=== PATIENT | male | born 1955 | race Caucasian/White ===

== ENCOUNTER → 2016-09-16 | Outpatient (CLI) | payer OTHER, MEDICARE ==
[~2016-09-16] MED LIST: ALBUAER2 INH; OXYC-57 PO
[2016-09-16 16:49] LABS: HEMATOCRIT 44.1 % (42-52); MEAN CELL VOLUME 87.7 fL (80-100); MEAN CORPUSCULAR HGB CONC 33.1 g/dl (32-36); MEAN PLATELET VOLUME 11.4 fL (7.4-10.4); PLATELET COUNT 269 K/uL (130-400); RED BLOOD COUNT 5.03 M/uL (4.7-6.1); WHITE BLOOD COUNT 7.99 K/uL (4.8-10.8)
[2016-09-16 17:17] LABS: ALB/GLOB RATIO 0.8 (0.9-2); ALKALINE PHOSPHATASE 55 U/L (45-117); ALT/SGPT 59 U/L (12-78); AST/SGOT 37 U/L (15-37); BLOOD UREA NITROGEN 19 mg/dl (7-18); BUN/CREATININE RATIO 15.5 (10-20); CALCIUM 8.9 mg/dl (8.5-10.1); CARBON DIOXIDE 24 mmol/L (21-32); CHLORIDE 106 mmol/L (98-107); GLUCOSE 104 mg/dl (70-99); POTASSIUM 3.8 mmol/L (3.5-5.1); SODIUM 139 mmol/L (136-145)
== END | disposition home or self-care (01) ==
LOC: C.LABBFT 12:31
PROVIDERS: ATTEND Internal Medicine
DX: Z11.59 Encounter for screening for other viral diseases (principal); R19.7 Diarrhea, unspecified

== ENCOUNTER 2021-03-15 19:16 | Inpatient (IN) ==
[2021-03-15] MEDS ORDERED: SODIUM CHLORIDE 0.9% 1000ML 1,000 ML IV ONE (19:35)
[2021-03-15] MEDS ORDERED: MoRPHine SULFATE 2 MG/ML CARP IV STA ×2 (19:35→23:53)
--- NOTE | 2021-03-15 19:37 | Emergency Department Note ---
Impression & Plan Incarcerated right inguinal hernia, SBO (small bowel obstruction), Incidental pulmonary nodule ED Provider Note Provider: Jessee Lujan MD DATE OF SERVICE: 03/15/2021 CHIEF COMPLAINT: Right lower abdominal pain HISTORY OF PRESENT ILLNESS: Patient is a 65-year-old gentleman history of UTI in the past presenting here today reporting onset around 4 PM this evening of some discomfort in the right lower abdominal region. States it was mild initially but is been worsening. Took some ibuprofen after discussion with the on-call doctor at home with some improvement but given continued symptoms came here. Denies any fever, chills, shortness of breath, chest pain, upper abdominal pain, back pain, pain down the legs, nausea, vomiting, or diarrhea. Denies significant testicular pain. Patient states he has frequent urination but this is unchanged. Does relate history of prior UTI in August but this feels maybe a bit different. Denies any history of abdominal surgery in the past. Denies any trauma or recent heavy lifting. Patient denies a known history of hernia but states he has noted some swelling in the right inguinal region for a while. REVIEW OF SYSTEMS: A total of 10 review of systems was obtained and negative except as stated above in the HPI. PAST MEDICAL HISTORY: As noted above MEDICATIONS: Reviewed home medications list SOCIAL HISTORY: Former smoker, lives at home PHYSICAL EXAM: GENERAL: alert and oriented in no acute distress on stretcher Head: normocephalic and atraumatic EYES: No injection, discharge or icterus. NECK: Trachea midline. ENT: Mucous membranes pink and moist. LUNGS: Airway patent. No retractions. Breath sounds clear HEART: Regular rate and rhythm. No chest wall tenderness ABDOMEN: Soft with some tenderness in the right inguinal region with a large palpable mass in this area extending into the right testicular region. SKIN: Acyanotic, warm, dry, without rashes EXTREMITIES: Without swelling, tenderness or deformity NEUROLOGICAL: No focal deficits. No aphasia. No facial droop or slurred speech. Ambulatory. EK bpm sinus rhythm with a first-degree AV block. Left bundle branch is noted with a left axis. No acute ST segment elevation is noted with a QTC of 498. CONTINUOUS CARDIAC MONITORING: was ordered and showed a heart rate of 60s-80s bpm in sinus rhythm first-degree AV block Patient's laboratory studies and imaging reviewed. Differential includes Appendicitis, testicular torsion, infections, diverticulitis, UTI, obstruction, mesenteric ischemia, aortic pathology, inflammatory bowel disease, renal colic, PUD, pancreatitis, biliary pathology, hernia, volvulus, constipation, as well as other pathologies. IMPRESSION/MEDICAL DECISION MAKING: Patient presents with right inguinal type pain with what appears to be a large hernia. Not able to be reduced by myself at bedside. Did give him a small amount of morphine for discomfort. Is somewhat tender here but not exquisitely so. No chest or upper abdominal discomfort appreciated. Negative Gastelum sign. Denies significant testicular discomfort. Blood work here without significant leukocytosis or anemia. Lactate not elevated. Lipase within normal limits and no evidence of transaminitis. Patient denies a history of known hernia here. Lower suspicion for acute appendicitis or kidney stone given the physical exam findings. Patient does have a history of UTI and will send a urine as he is able to produce but again given the tenderness over the area sent for CT scan to look for possible incarcerated or strangulated hernia. CT report shows evidence of an incarcerated large right inguinal hernia with evidence of some small bowel obstruction developing. Patient without significant bowel obstruction symptoms such as nausea at this point likely. Patient reevaluation states his pain is fairly steady improved minimally with a small amount of morphine earlier but is not severely worse. Discussed with him and family at bedside findings. Discussed the need for surgical consultation and the surgery team was contacted to evaluate the patient emergently here in the emergency department. Urinalysis without signs of infection I believe the primary etiology of his entire symptoms related this hernia. Did discuss with patient the findings of a few small incidental pulmonary nodules at the base of the lungs that will need followed up when he is recovered. He acknowledged these. DIAGNOSIS: Incarcerated hernia, small bowel obstruction, pulmonary nodules DISPOSITION: Evaluated by the surgery team Brian GRIJALVA Past Med/Surg History Medical History Flank pain Urinary symptom or sign Social History Smoking Status: Former smoker Preferred Language: Divehi Feels Safe at Home: Yes Allergies Allergies Allergy/AdvReac Type Severity Reaction Status Date / Time No Known Allergies Allergy Mild Verified 03/15/21 21:29 Home Meds Home Medications Medication Instructions Recorded Confirmed ibuprofen [Advil] 200 mg PO Q6H PRN 03/15/21 03/15/21 Previous Rx's Medication Instructions Recorded sertraline 50 mg tablet 50 mg PO DAILY #90 tab 12/18/19 triamcinolone acetonide 0.1 % 1 applic TOPICAL BID #30 g 09/11/20 topical cream omeprazole 20 mg capsule,delayed 20 mg PO DAILY #90 cap 12/24/20 release Results & Data (ED) Vital Signs Vital Signs - 24 hr 03/15/21 19:18 03/15/21 20:08 03/15/21 20:30 Temperature 36.6 C Temperature Source Temporal Artery Scan Pulse Rate 80 69 65 Pulse Rate from SpO2 Sensor 66 Pulse Rhythm Regular Respiratory Rate 18 20 20 Respiratory Effort / Characteristics Non-Labored Spontaneous Respiratory Depth Normal Respiratory Pattern Regular Blood Pressure 220/121 H 172/105 H Blood Pressure Mean 154 127 Blood Pressure Position Sitting Pulse Oximetry 99 99 98 Oxygen Delivery Method Room Air Room Air Sepsis Recent Fever Within 48 Hours No Sepsis New/Unexplained Change in Mental Status N/A Sepsis Action Taken by Nursing No Action Required 03/15/21 20:34 03/15/21 21:28 03/15/21 21:30 Temperature Temperature Source Pulse Rate 67 68 74 Pulse Rate from SpO2 Sensor 66 75 Pulse Rhythm Respiratory Rate 18 18 19 Respiratory Effort / Characteristics Respiratory Depth Respiratory Pattern Blood Pressure 180/91 H Blood Pressure Mean 120 Blood Pressure Position Pulse Oximetry 97 99 Oxygen Delivery Method Sepsis Recent Fever Within 48 Hours Sepsis New/Unexplained Change in Mental Status Sepsis Action Taken by Nursing 03/15/21 21:31 03/15/21 22:00 03/15/21 22:01 Temperature Temperature Source Pulse Rate 72 72 74 Pulse Rate from SpO2 Sensor 73 73 72 Pulse Rhythm Respiratory Rate 17 21 20 Respiratory Effort / Characteristics Respiratory Depth Respiratory Pattern Blood Pressure 161/107 H Blood Pressure Mean 125 Blood Pressure Position Pulse Oximetry 98 98 97 Oxygen Delivery Method Sepsis Recent Fever Within 48 Hours Sepsis New/Unexplained Change in Mental Status Sepsis Action Taken by Nursing Laboratory Data Result diagrams: 03/15/21 19:54 03/15/21 19:54 Lab Results 03/15/21 03/15/21 03/15/21 Range/Units 19:54 19:54 19:54 WBC 9.94 (4.8-10.8) K/uL RBC 4.83 (4.7-6.1) M/uL Hgb 14.5 (14.0-18.0) g/dL Hct 42.7 (42-52) % MCV 88.4 (80-100) fL MCH 30.0 (25-34) pg MCHC 34.0 (32-36) g/dL RDW Std Deviation 44.2 (36.4-46.3) fL RDW Coeff of Rob 13.5 (11.5-14.5) % Plt Count 253 (130-400) K/uL MPV 11.2 H (7.4-10.4) fL Immature Gran % (Auto) 0.2 % Neut % (Auto) 71.6 % Lymph % (Auto) 19.2 % [place] % (Auto) 8.2 % Eos % (Auto) 0.7 % Baso % (Auto) 0.1 % Neut # (Auto) 7.11 H (1.4-6.5) K/uL Lymph # (Auto) 1.91 (1.2-3.4) K/uL [place] # (Auto) 0.82 H (0.11-0.59) K/uL Eos # (Auto) 0.07 (0-0.5) K/uL Baso # (Auto) 0.01 (0-0.2) K/uL Immature Gran # (Auto) 0.02 (0.00-0.02) K/uL PT (9.0-12.0) Seconds INR (0.9-1.1) Sodium 138 (136-145) mmol/L Potassium 4.1 (3.5-5.1) mmol/L Chloride 107 (98-107) mmol/L Carbon Dioxide 26 (21-32) mmol/L Anion Gap 5.0 (3-11) BUN 15 (7-18) mg/dl Creatinine 1.02 (0.6-1.4) mg/dl Est Cr Clr Drug Dosing 85.2 ml/min Est GFR ( Amer) 88.4 ml/min Est GFR (Non-Af Amer) 76.2 ml/min BUN/Creatinine Ratio 14.7 (10-20) Glucose 107 H (70-99) mg/dl Lactate 1.1 (0.4-2.0) mmol/L Calcium 9.1 (8.5-10.1) mg/dl Total Bilirubin 0.3 (0.2-1) mg/dl AST 18 (15-37) U/L ALT 25 (12-78) U/L Alkaline Phosphatase 57 (45-117) U/L Total Protein 7.8 (6.4-8.2) gm/dl Albumin 3.5 (3.4-5.0) gm/dl Globulin 4.3 H (2.5-4.0) gm/dl Albumin/Globulin Ratio 0.8 L (0.9-2) Lipase 178 (73-393) U/L Urine Color Urine Appearance (Clear) Urine pH (4.5-7.5) Ur Specific [place] (1.000-1.030) Urine Protein (Negative) Urine Glucose (UA) (Negative) Urine Ketones (Negative) Urine Blood (Negative) Urine Nitrite (Negative) Urine Bilirubin (Negative) Urine Urobilinogen (Negative) Ur Leukocyte Esterase (Negative) COVID-19 Eval Order SARS-CoV-2 (PCR) (Negative) 03/15/21 03/15/21 03/15/21 Range/Units 19:54 20:10 20:10 WBC (4.8-10.8) K/uL RBC (4.7-6.1) M/uL Hgb (14.0-18.0) g/dL Hct (42-52) % MCV (80-100) fL MCH (25-34) pg MCHC (32-36) g/dL RDW Std Deviation (36.4-46.3) fL RDW Coeff of Rob (11.5-14.5) % Plt Count (130-400) K/uL MPV (7.4-10.4) fL Immature Gran % (Auto) % Neut % (Auto) % Lymph % (Auto) % [place] % (Auto) % Eos % (Auto) % Baso % (Auto) % Neut # (Auto) (1.4-6.5) K/uL Lymph # (Auto) (1.2-3.4) K/uL [place] # (Auto) (0.11-0.59) K/uL Eos # (Auto) (0-0.5) K/uL Baso # (Auto) (0-0.2) K/uL Immature Gran # (Auto) (0.00-0.02) K/uL PT 10.9 (9.0-12.0) Seconds INR 1.1 (0.9-1.1) Sodium (136-145) mmol/L Potassium (3.5-5.1) mmol/L Chloride (98-107) mmol/L Carbon Dioxide (21-32) mmol/L Anion Gap (3-11) BUN (7-18) mg/dl Creatinine (0.6-1.4) mg/dl Est Cr Clr Drug Dosing ml/min Est GFR ( Amer) ml/min Est GFR (Non-Af Amer) ml/min BUN/Creatinine Ratio (10-20) Glucose (70-99) mg/dl Lactate (0.4-2.0) mmol/L Calcium (8.5-10.1) mg/dl Total Bilirubin (0.2-1) mg/dl AST (15-37) U/L ALT (12-78) U/L Alkaline Phosphatase (45-117) U/L Total Protein (6.4-8.2) gm/dl Albumin (3.4-5.0) gm/dl Globulin (2.5-4.0) gm/dl Albumin/Globulin Ratio (0.9-2) Lipase (73-393) U/L Urine Color Urine Appearance (Clear) Urine pH (4.5-7.5) Ur Specific [place] (1.000-1.030) Urine Protein (Negative) Urine Glucose (UA) (Negative) Urine Ketones (Negative) Urine Blood (Negative) Urine Nitrite (Negative) Urine Bilirubin (Negative) Urine Urobilinogen (Negative) Ur Leukocyte Esterase (Negative) COVID-19 Eval Order Covid19 at [facility] SARS-CoV-2 (PCR) NEGATIVE (Negative) 03/15/21 Range/Units 21:30 WBC (4.8-10.8) K/uL RBC (4.7-6.1) M/uL Hgb (14.0-18.0) g/dL Hct (42-52) % MCV (80-100) fL MCH (25-34) pg MCHC (32-36) g/dL RDW Std Deviation (36.4-46.3) fL RDW Coeff of Rob (11.5-14.5) % Plt Count (130-400) K/uL MPV (7.4-10.4) fL Immature Gran % (Auto) % Neut % (Auto) % Lymph % (Auto) % [place] % (Auto) % Eos % (Auto) % Baso % (Auto) % Neut # (Auto) (1.4-6.5) K/uL Lymph # (Auto) (1.2-3.4) K/uL [place] # (Auto) (0.11-0.59) K/uL Eos # (Auto) (0-0.5) K/uL Baso # (Auto) (0-0.2) K/uL Immature Gran # (Auto) (0.00-0.02) K/uL PT (9.0-12.0) Seconds INR (0.9-1.1) Sodium (136-145) mmol/L Potassium (3.5-5.1) mmol/L Chloride (98-107) mmol/L Carbon Dioxide (21-32) mmol/L Anion Gap (3-11) BUN (7-18) mg/dl Creatinine (0.6-1.4) mg/dl Est Cr Clr Drug Dosing ml/min Est GFR ( Amer) ml/min Est GFR (Non-Af Amer) ml/min BUN/Creatinine Ratio (10-20) Glucose (70-99) mg/dl Lactate (0.4-2.0) mmol/L Calcium (8.5-10.1) mg/dl Total Bilirubin (0.2-1) mg/dl AST (15-37) U/L ALT (12-78) U/L Alkaline Phosphatase (45-117) U/L Total Protein (6.4-8.2) gm/dl Albumin (3.4-5.0) gm/dl Globulin (2.5-4.0) gm/dl Albumin/Globulin Ratio (0.9-2) Lipase (73-393) U/L Urine Color Yellow Urine Appearance Clear (Clear) Urine pH 6.0 (4.5-7.5) Ur Specific [place] 1.021 (1.000-1.030) Urine Protein Negative (Negative) Urine Glucose (UA) Negative (Negative) Urine Ketones Negative (Negative) Urine Blood Negative (Negative) Urine Nitrite Negative (Negative) Urine Bilirubin Negative (Negative) Urine Urobilinogen Negative (Negative) Ur Leukocyte Esterase Negative (Negative) COVID-19 Eval Order SARS-CoV-2 (PCR) (Negative) Administered Medications Discontinued Medications Sodium Chloride (Nss 1000ml) 1,000 mls @ 999 mls/hr IV .Q1H1M ONE Stop: 03/15/21 20:35 Last Infusion: 03/15/21 21:19 Dose: 0 mls/hr Documented by: [id number] Admin: 03/15/21 20:04 Dose: 999 mls/hr Documented by: [id number] Ioversol (Optiray 320 100ml) 95 ml IV ONCE ONE Stop: 03/15/21 20:46 Last Admin: 03/15/21 20:45 Dose: 95 ml Documented by: [id number] Morphine Sulfate (Morphine Sulfate 2 Mg/Ml Carp) 2 mg IV NOW STA Stop: 03/15/21 19:36 Last Admin: 03/15/21 20:04 Dose: 2 mg Documented by: [id number] Imaging Data Radiologist's Impression: Abdomen/Pelvis CT 03/15/21 19:23 CT SCAN OF THE ABDOMEN AND PELVIS WITH IV CONTRAST CLINICAL HISTORY: Right groin pain. COMPARISON STUDY: No priors. TECHNIQUE: Following the IV administration of 95 cc of Optiray 320, CT scan of the abdomen and pelvis is performed from the lung bases to the proximal femora. Images are reviewed in the axial, sagittal, and coronal planes. IV contrast was administered without complication. A dose lowering technique was utilized adhering to the principles of ALARA. CT DOSE: 1300.73 mGycm FINDINGS: Lung bases: The heart is enlarged and without pericardial effusion. Subpleural reticulation is seen at both lung bases. There is no airspace consolidation or pleural effusion. Mild bronchiectasis is seen in the lower lobes. A 13 mm pulmo nary nodule at the left lung base is seen on image #43. A 6 mm pulmonary nodule in the right lower lobe as seen on image #37. There is a small hiatal hernia. Liver: The contrast-enhanced liver is normal in size and contour. The liver demonstrates diminished attenuation consistent with hepatic steatosis. Fatty sparing is seen adjacent to gallbladder fossa. There is no intrahepatic biliary ductal dilatation. The hepatic veins and portal veins are patent. Gallbladder: There are gallstones with no CT evidence of acute cholecystitis. Spleen: Normal in size and attenuation. Pancreas: Unremarkable. Adrenal glands: Unremarkable. Kidneys: The contrast enhanced kidneys demonstrate mild cortical atrophy and are without hydronephrosis. The kidneys enhance symmetrically. A subcentimeter cortical hypodensity in the right upper pole likely represents a cyst but is too small for definitive characterization. Abdominal vasculature: There is moderate atherosclerotic calcification and mild ectasia of the abdominal aorta. Bowel: A large right inguinal hernia contains the cecum and distal ileum. The small bowel upstream from the inguinal hernia is mildly dilated and fecalized measuring up to 3.1 cm in diameter. This is consistent with a small bowel obstruction. No focally thick walled bowel loops are identified. There is no pneumatosis intestinalis or portal venous gas. Mild inflammatory change is present within the fat leading to and within the inguinal hernia. There is mild colonic diverticulosis without CT evidence of acute diverticulitis. The appendix is well-visualized and normal, and located within a right inguinal hernia. Peritoneum: There is no intraperitoneal free air or abdominal ascites. There is a fat-containing umbilical hernia. Lymphadenopathy: None. Pelvic viscera: The bladder, prostate, and seminal vesicles are normal as visualized. There is a moderate fat-containing left inguinal hernia. There is a large right inguinal hernia which contains fat and bowel. See above. Skeletal structures: The skeletal structures are osteopenic. There is a chronic appearing superior endplate compression deformity of L2. Mild sacral spondylosis is observed. No lytic or blastic lesions are seen. IMPRESSION: 1. A large right inguinal hernia contains the cecum and distal ileum. 2. There is evidence of incarceration with upstream small bowel obstruction. 3. No focally thick walled bowel loops are identified. There is no pneumatosis intestinalis, portal venous gas, or intraperitoneal free air. 4. There is a moderate fat-containing left inguinal hernia. 5. Hepatic steatosis. 6. Cholelithiasis. 7. Cardiomegaly with evidence of interstitial lung disease at the lung bases. 8. There are bibasilar pulmonary nodules which measure up to 13 mm. These are pathologically indeterminant and follow-up with a nonemergent dedicated chest CT is recommended for further assessment of the thorax. 9. Additional findings as above. ACT 112: Positive. There are findings on this exam that require communication between the performing entity and the patient following Patient Test Result Information Act ([place] Act 112) guidelines. Electronically signed by: Abebe Stokes M.D. 03/15/2021 10:01 PM Discharge Plan Visit Data Chief Complaint: Abdominal Pain Stated Complaint: PAIN IN LOWER ABD/GROIN ED Provider: Jessee Lujan Discharge Problem: Incarcerated right inguinal hernia, SBO (small bowel obstruction), Incidental pulmonary nodule Patient Disposition: Being Evaluated by Surgeon Forms Stand Alone Forms: [facility] Prescriptions Prescriptions: No Action sertraline 50 mg tablet 50 mg PO DAILY Qty: 90 RF: 3 omeprazole 20 mg capsule,delayed release(DR/EC) 20 mg PO DAILY Qty: 90 RF: 3 triamcinolone acetonide 0.1 % cream 1 applic topical BID Qty: 30 RF: 2 ibuprofen [Advil] 200 mg Tablet 200 mg PO Q6H PRN (Reason: Pain) RF: 0 Referrals Referrals: Marky Cook III, MD [Primary Care Provider] -
[2021-03-15 20:05] LABS: Basophils # (auto) 0.01 K/uL (0-0.2); Basophils % (auto) 0.1 %; Eosinophils # (auto) 0.07 K/uL (0-0.5); Eosinophils % (auto) 0.7 %; Hematocrit (blood only) 42.7 % (42-52); Hemoglobin 14.5 g/dL (14.0-18.0); Immature Granulocytes # (auto) 0.02 K/uL (0.00-0.02); Immature Granulocytes % (auto) 0.2 %; Lymphocytes # (auto) 1.91 K/uL (1.2-3.4); Lymphocytes % (auto) 19.2 %; Mean Corpuscular Volume 88.4 fL (80-100); Mean Platelet Volume 11.2 fL (7.4-10.4); Monocytes # (auto) 0.82 K/uL (0.11-0.59); Monocytes % (auto) 8.2 %; Neutrophils # (auto) 7.11 K/uL (1.4-6.5); Neutrophils % (auto) 71.6 %; Platelet Count 253 K/uL (130-400); RDW Coefficient of Variation 13.5 % (11.5-14.5); RDW Standard Deviation 44.2 fL (36.4-46.3); Red Blood Count 4.83 M/uL (4.7-6.1); White Blood Count 9.94 K/uL (4.8-10.8)
[2021-03-15 20:22] LABS: Albumin Level 3.5 gm/dl (3.4-5.0); BUN Creatinine Ratio 14.7 (10-20); Calcium 9.1 mg/dl (8.5-10.1); Creatinine Clr Calc Pharmacy 85.2 ml/min; Est GFR (African American) 88.4 ml/min; Est GFR (Non-African American) 76.2 ml/min; Potassium 4.1 mmol/L (3.5-5.1)
[2021-03-15 20:24] LABS: Albumin Globulin Ratio 0.8 (0.9-2); Bilirubin,Total 0.3 mg/dl (0.2-1); Globulin 4.3 gm/dl (2.5-4.0); Total Protein 7.8 gm/dl (6.4-8.2)
[2021-03-15 20:30] LABS: INR 1.1 (0.9-1.1); Prothrombin Time 10.9 Seconds (9.0-12.0)
[2021-03-15] MEDS ORDERED: OPTIRAY 320 100ml IV ONE (20:45)
[2021-03-15 21:45] LABS: Appearance Urine Clear (Clear); Bilirubin Urine Negative (Negative); Blood Urine Negative (Negative); Color Urine Yellow; Glucose Urine UA Negative (Negative); Ketones Urine Negative (Negative); Leukocyte Esterase Urine Negative (Negative); Nitrite Urine Negative (Negative); Protein Urine Negative (Negative); Specific Gravity Urine 1.021 (1.000-1.030); Urobilinogen Urine Negative (Negative)
--- NOTE | 2021-03-15 22:02 | CT Scan Report ---
CT SCAN OF THE ABDOMEN AND PELVIS WITH IV CONTRAST CLINICAL HISTORY: Right groin pain. COMPARISON STUDY: No priors. TECHNIQUE: Following the IV administration of 95 cc of Optiray 320, CT scan of the abdomen and pelvi s is performed from the lung bases to the proximal femora. Images are reviewed in the axial, sagittal , and coronal planes. IV contrast was administered without complication. A dose lowering technique wa s utilized adhering to the principles of ALARA. CT DOSE: 1300.73 mGycm FINDINGS: Lung bases: The heart is enlarged and without pericardial effusion. Subpleural reticulation is seen a t both lung bases. There is no airspace consolidation or pleural effusion. Mild bronchiectasis is see n in the lower lobes. A 13 mm pulmonary nodule at the left lung base is seen on image #43. A 6 mm pul monary nodule in the right lower lobe as seen on image #37. There is a small hiatal hernia. Liver: The contrast-enhanced liver is normal in size and contour. The liver demonstrates diminished a ttenuation consistent with hepatic steatosis. Fatty sparing is seen adjacent to gallbladder fossa. Th ere is no intrahepatic biliary ductal dilatation. The hepatic veins and portal veins are patent. Gallbladder: There are gallstones with no CT evidence of acute cholecystitis. Spleen: Normal in size and attenuation. Pancreas: Unremarkable. Adrenal glands: Unremarkable. Kidneys: The contrast enhanced kidneys demonstrate mild cortical atrophy and are without hydronephros is. The kidneys enhance symmetrically. A subcentimeter cortical hypodensity in the right upper pole l ikely represents a cyst but is too small for definitive characterization. Abdominal vasculature: There is moderate atherosclerotic calcification and mild ectasia of the abdomi nal aorta. Bowel: A large right inguinal hernia contains the cecum and distal ileum. The small bowel upstream fr om the inguinal hernia is mildly dilated and fecalized measuring up to 3.1 cm in diameter. This is co nsistent with a small bowel obstruction. No focally thick walled bowel loops are identified. There is no pneumatosis intestinalis or portal venous gas. Mild inflammatory change is present within the fat leading to and within the inguinal hernia. There is mild colonic diverticulosis without CT evidence of acute diverticulitis. The appendix is well-visualized and normal, and located within a right ingu inal hernia. Peritoneum: There is no intraperitoneal free air or abdominal ascites. There is a fat-containing umbi lical hernia. Lymphadenopathy: None. Pelvic viscera: The bladder, prostate, and seminal vesicles are normal as visualized. There is a mode rate fat-containing left inguinal hernia. There is a large right inguinal hernia which contains fat a nd bowel. See above. Skeletal structures: The skeletal structures are osteopenic. There is a chronic appearing superior en dplate compression deformity of L2. Mild sacral spondylosis is observed. No lytic or blastic lesions are seen. IMPRESSION: 1. A large right inguinal hernia contains the cecum and distal ileum. 2. There is evidence of incarceration with upstream small bowel obstruction. 3. No focally thick walled bowel loops are identified. There is no pneumatosis intestinalis, portal v enous gas, or intraperitoneal free air. 4. There is a moderate fat-containing left inguinal hernia. 5. Hepatic steatosis. 6. Cholelithiasis. 7. Cardiomegaly with evidence of interstitial lung disease at the lung bases. 8. There are bibasilar pulmonary nodules which measure up to 13 mm. These are pathologically indeterm inant and follow-up with a nonemergent dedicated chest CT is recommended for further assessment of th e thorax. 9. Additional findings as above. ACT 112: Positive. There are findings on this exam that require communication between the performing entity and the patient following Patient Test Result Information Act ([place] Act 112) guidelines. Electronically signed by: Abebe Stokes M.D. 03/15/2021 10:01 PM
--- NOTE | 2021-03-15 23:07 | History & Physical Report ---
Date of Service March 15, 2021 Assessment & Plan (1) Incarcerated right inguinal hernia: Case was reviewed with Dr. Gary of general surgery we will plan on admitting the patient to the hospital this evening. We will proceed as follows: Analgesics will be provided Antiemetics will be provided We will provide IV fluid for hydration We will keep the patient n.p.o. We will plan on herniorrhaphy tomorrow morning. We will plan on performing a diagnostic laparoscopy with possible laparoscopic right inguinal herniorrhaphy we will also assess the fat-containing left inguinal herniorrhaphy and determine if repair is needed at that site as well. I have discussed with the patient the possibility that procedures may need to be converted to open procedure. We discussed the risks and the benefits and he wishes to proceed with surgery. History of Present Illness Chief Complaint: Abdominal pain Primary Care Provider: Marky Cook MD This is a 65-year-old male who was in his usual state of health until earlier today when he developed abdominal pain that was greatest in the right groin. Patient says that the pain is primarily located in the right groin is does not radiate anywhere else in his body. He denies any palliative or provocative factors. He denies any fevers, shakes, chills. Patient says that he has never had any abdominal surgery. He denies any nausea or vomiting with his current symptomatology. Because of patient's pain he presented to the emergency department where he did have labs and imaging performed which I independently reviewed. CBC revealed his white blood cell count, hemoglobin, hematocrit, and platelet count were all noted to be within normal range. Coagulation studies were noted to be normal. Chemistry profile showed his sodium, potassium, BUN, and creatinine were all within normal range. Lactic acid level was checked and was noted to be not elevated. Urinalysis was not indicative of infection and a Covid test was performed which was negative.Patient did have a CT scan of his abdomen and pelvis. This scan demonstrated a large right inguinal hernia containing portions of the cecum and distal ileum with with possible evidence of incarceration with an upstream small bowel obstruction. There is no pneumatosis intestinalis or portal venous gas. There is no intraperitoneal free air. Patient was also noted to have gallstones and he was also noted to have a fat- containing left inguinal hernia. In addition the patient was noted to have bibasilar pulmonary nodules measuring up to 13 mm which were pathologically indeterminate. To the best of patient's knowledge he was did not know that he had inguinal hernias. He has never had pain in this area before but he does note that he was in the process of moving over the past week and did considerable amount of heavy lifting. He does note that he is active walking his dog nearly every day. The patient says that he can easily walk 1/2 mile on a flat surface without any chest pain or shortness of breath. He also says he can negotiate steps and inclines without chest pain or shortness of breath. He is a former smoker but has not smoked in several years. At the time of my interview the patient is resting comfortably in bed. He only had pain with palpation of his right groin and he was in no distress. Allergies Allergy/AdvReac Type Severity Reaction Status Date / Time No Known Allergies Allergy Mild Verified 03/15/21 21:29 Home Medications Medication Instructions Recorded Confirmed Type sertraline 50 mg tablet 50 mg PO DAILY #90 tab 12/18/19 03/15/21 Rx triamcinolone acetonide 0.1 % 1 applic TOPICAL BID #30 g 09/11/20 03/15/21 Rx topical cream omeprazole 20 mg capsule,delayed 20 mg PO DAILY #90 cap 12/24/20 03/15/21 Rx release ibuprofen [Advil] 200 mg PO Q6H PRN 03/15/21 03/15/21 History Past Med/Surg History Medical History Flank pain Urinary symptom or sign Social History Smoking Status: Former smoker Preferred Language: Mohawk Feels Safe at Home: Yes Review of Systems Constitutional: no fever and no chills Eyes: no diplopia Ear, Nose, Mouth, Throat: no ear pain Respiratory: no cough and no dyspnea Cardiovascular: no chest pain Gastrointestinal: + abdominal pain (Right groin); no nausea and no vomiting Genitourinary: no dysuria Musculoskeletal: no back pain Integumentary: no rash Neurologic: no localized weakness Physical Exam Constitutional: well developed and well nourished; no acute distress Eyes: no conjunctival abnormality ENMT: Ears: no hearing impairment Neck: trachea midline Respiratory: normal respiratory effort; no respiratory distress and no labored breathing Cardiovascular: Rate/Rhythm: regular rate and regular rhythm Gastrointestinal (Abdomen): Abdomen is rotund but soft. Bowel sounds are present. Was unable to palpate any any hernia in the left inguinal region. Patient was noted to have a moderate to large hernia in the right inguinal region that was painful to palpation and nonreducible at the bedside. There is no erythema or discoloration of the skin in the right inguinal region. There is no rebound tenderness or guarding with palpation of the abdomen. Musculoskeletal: No calf tenderness Skin: no rashes, warm and dry Neurologic: moves all extremities Psychiatric: A+Ox3, euthymic affect Results & Data Results & Data ([facility]) Vital Signs (Past 12 Hours) Vital Signs Temp Pulse Resp BP Pulse Ox 03/15/21 22:01 74 20 97 03/15/21 22:00 72 21 161/107 H 98 03/15/21 21:31 72 17 98 03/15/21 21:30 74 19 180/91 H 99 03/15/21 21:28 68 18 03/15/21 20:34 67 18 97 03/15/21 20:30 65 20 172/105 H 98 03/15/21 20:08 69 20 99 03/15/21 19:18 36.6 C 80 18 220/121 H 99 PG Care Time/CCT Total # of Minutes Spent Total Time Spent with Patient: Total time spent is greater than 50% in coordination of care (as documented) at patient's floor/unit and/or counseling patient: Coding Level of Care Code 78832 Initial Inpt Care Lvl 3 Diagnoses Incarcerated right inguinal hernia K40.30
--- NOTE | 2021-03-15 23:29 | XRay Report ---
SINGLE VIEW CHEST CLINICAL HISTORY: Preoperative examination. Interstitial lung disease. FINDINGS: An AP, portable, upright chest radiograph is compared to study dated 10/14/2019. The examinat ion is degraded by portable technique and apical lordotic positioning. The heart is enlarged noting a therosclerotic calcification of the thoracic aorta. The pulmonary vasculature is noncongested. There is evidence of chronic interstitial lung disease. Scarring/atelectasis is present at the lung bases. No airspace consolidation or large pleural effusion is identified. No pneumothorax is seen. The skele rachelle structures are osteopenic. The bony thorax is grossly intact. IMPRESSION: 1. Cardiomegaly with no acute cardiopulmonary abnormality. 2. There is evidence of interstitial lung disease. ACT 112: Negative or not required by law. Electronically signed by: Abebe Stokes M.D. 03/15/2021 11:28 PM
--- NOTE | 2021-03-16 00:25 | Hospitalist Consultation ---
Date of Consultation March 16, 2021 Assessment & Plan (1) LBBB (left bundle branch block): 65 yo M Hx smoking use admitted by Surgery for concern for incarcerated inguinal hernia. Noted on EKG to have new LBBB and hypertensive urgency in ER. New LBBB, HTN: - On presentation with BP 220s/120s while in significant pain, with improvement in BP with pain medications. - Noted on ER EKG to have new LBBB. - No complaints of angina/anginal equivalents with rest or activity. - Smoking history, quit 3 months ago. - Will need Cardiology evaluation prior to surgery (unless emergent surgery). Cardiology consult ordered. - TTE ordered. Lipid panel and A1c with morning labs. - Lopressor 5mg q6h prn BP >180/110. - Repeat EKG in AM. - Med Tele for cardiac monitoring overnight. Inguinal hernia: - Care per General Surgery. - For surgery tomorrow AM pending Cardiology clearance, unless decision made to perform surgery emergently. - Concern for incarcerated inguinal hernia on imaging. - NPO with IV pain and nausea medications. (2) HTN (hypertension): Supervising Physician Co-Signing Physician Notes Attending addendum: I have physically seen this patient, have supervised the medical residents activities, and agree with the H&P unless as otherwise noted. Assessment and Plan: New left bundle branch block/hypertension- The patient will be admitted to telemetry for serial cardiac enzymes, serial EKG's, cardiac rhythm monitoring and a 2-D echocardiogram with Dopplers. Consult cardiology regarding preop authorization Inguinal hernia- Attendings General surgery IV fluids and pain control per primary service Plan for OR in the a.m. Remaining orders and notations as noted History of Present Illness Reason for Consultation: HTN, new LBBB Requesting Physician: Dr. Gary Attending Physician: Dr. Scott History of Present Illness 65 yo M no significant PMHx presented to ER for RLQ / right groin pain that started at 2pm today. CTAP performed which showed large right inguinal hernia with portions of cecum and distal ileum with concern for incarceration, as well as moderate sized left inguinal hernia. Seen and admitted by General Surgery with plans for surgery in early AM. On admission EKG noted to have new LBBB (not seen on previous EKGs). Also noted to have HTN with highest noted to be 220s/120s (of note, this was when patient was in significant pain, BP has since improved to 130s/80-90s with pain control. Patient does not complain of history of exertional chest pain, SOB, palpitations, anginal equivalents. Goes on frequent walks with his dog without symptoms. No history of DM2 or HLD. Does endorse a ~20 pack year smoking history (~1/3 PPD for 50 years). Patient quit smoking 3 months ago. Allergies Allergy/AdvReac Type Severity Reaction Status Date / Time No Known Allergies Allergy Mild Verified 03/15/21 21:29 Home Medications Medication Instructions Recorded Confirmed Type sertraline 50 mg tablet 50 mg PO DAILY #90 tab 12/18/19 03/18/21 Rx triamcinolone acetonide 0.1 % 1 applic TOPICAL BID #30 g 09/11/20 03/18/21 Rx topical cream omeprazole 20 mg capsule,delayed 20 mg PO DAILY #90 cap 12/24/20 03/18/21 Rx release ibuprofen [Advil] 200 mg PO Q6H PRN 03/15/21 03/18/21 History oxycodone-acetaminophen [Percocet] 1 - 2 tab PO Q4H PRN #15 tab 03/17/21 03/18/21 Rx Patient History Medical History Flank pain GERD (gastroesophageal reflux disease) History of smoking HTN (hypertension) Incidental pulmonary nodule LBBB (left bundle branch block) Urinary symptom or sign Social History Smoking Status: Former smoker Cigarettes Per Day: 10; Second Hand Exposure: No; Hx Alcohol Use: No Hx Substance Use: No Preferred Language: Senegalese Communication Ability: Effective Beliefs That Will Affect Care: None Current Living Situation: Spouse Feels Safe at Home: Yes Assistive Devices: Glasses Review of Systems Review of Systems: All systems reviewed & are unremarkable except as noted in HPI & below Constitutional: no fever, no chills and no malaise Respiratory: no cough and no dyspnea Cardiovascular: no chest pain, no palpitations and no edema Gastrointestinal: + abdominal pain; no nausea, no vomiting, no constipation and no diarrhea/loose stools Physical Exam Constitutional: WD/WN, vitals as above Eyes: PERRL, conjunctivae normal, anicteric sclerae ENMT: external ear and nose normal, oropharynx normal Neck: normal visual inspection Respiratory: normal respiratory effort, lungs clear to auscultation Cardiovascular: RRR, no murmur, no edema Gastrointestinal (Abdomen): Inspection/Auscultation: normal bowel sounds Percussion/Palpation: + abdomen tender (RLQ) and abdomen soft Skin: no rashes, warm and dry Psychiatric: A+Ox3, euthymic affect Results & Data Results & Data ([facility]) Vital Signs (Past 12 Hours) Vital Signs Temp Pulse Resp BP Pulse Ox 03/16/21 00:00 68 18 132/89 98 03/15/21 22:01 74 20 97 03/15/21 22:00 72 21 161/107 H 98 03/15/21 21:31 72 17 98 03/15/21 21:30 74 19 180/91 H 99 03/15/21 21:28 68 18 03/15/21 20:34 67 18 97 03/15/21 20:30 65 20 172/105 H 98 03/15/21 20:08 69 20 99 03/15/21 19:18 36.6 C 80 18 220/121 H 99 Resident Activity Tracking Resident Involvement: Resident Care Provided Care Provided: Adult Hospital Medicine (1) HTN (hypertension) Hypertension type: unspecified Qualified Code(s): I10 - Essential (primary) hypertension
[2021-03-16] MEDS ORDERED: METOPROLOL TARTRATE 1 MG/ML VIAL IV PRN (01:42)
[2021-03-16] MEDS ORDERED: ONDANSETRON INJ 2 MG/ML 2 ML VIAL IV PRN (01:42)
[2021-03-16] MEDS ORDERED: MoRPHine SULFATE 4 MG/ML 1 ML CARP\\VIAL IV PRN (01:42)
[2021-03-16] MEDS: ACETAMINOPHEN 1,000 MG/100 ML VIAL IV PRN ×2 (02:12→22:49)
[2021-03-16] MEDS: LACTATED RINGER'S 1,000 ML IV SCH ×2 (02:37→16:22)
[2021-03-16 04:28] LABS: Basophils # (auto) 0.01 K/uL (0-0.2); Basophils % (auto) 0.1 %; Eosinophils # (auto) 0.07 K/uL (0-0.5); Eosinophils % (auto) 0.6 %; Hematocrit (blood only) 41.6 % (42-52); Immature Granulocytes # (auto) 0.04 K/uL (0.00-0.02); Immature Granulocytes % (auto) 0.3 %; Lymphocytes # (auto) 2.22 K/uL (1.2-3.4); Lymphocytes % (auto) 17.8 %; Mean Corpuscular Hemoglobin 29.7 pg (25-34); Mean Corpuscular Volume 88.3 fL (80-100); Mean Platelet Volume 11.3 fL (7.4-10.4); Monocytes # (auto) 1.32 K/uL (0.11-0.59); Monocytes % (auto) 10.6 %; Neutrophils # (auto) 8.81 K/uL (1.4-6.5); Neutrophils % (auto) 70.6 %; Platelet Count 251 K/uL (130-400); RDW Coefficient of Variation 13.6 % (11.5-14.5); RDW Standard Deviation 44.5 fL (36.4-46.3); Red Blood Count 4.71 M/uL (4.7-6.1); White Blood Count 12.47 K/uL (4.8-10.8)
[2021-03-16 04:32] LABS: Mean Corpuscular Hgb Conc 33.7 g/dL (32-36)
[2021-03-16 04:40] LABS: BUN Creatinine Ratio 15.3 (10-20); Calcium 8.6 mg/dl (8.5-10.1); Creatinine Clr Calc Pharmacy 96.1 ml/min; Est GFR (African American) 103.3 ml/min; Est GFR (Non-African American) 89.1 ml/min; Potassium 3.9 mmol/L (3.5-5.1)
--- NOTE | 2021-03-16 05:06 | Surgery Progress Note ---
Date of Service March 16, 2021 Assessment & Plan (1) Incarcerated right inguinal hernia: The patient has been admitted on the surgical service proceeding as follows: Continue analgesics Continue antiemetics Continue IV fluids for hydration To new n.p.o. status in anticipation for herniorrhaphy later this morning Preoperative chest x-ray does not show any evidence of pneumonia A Covid test has been performed and is noted to be negative. Preoperative antibiotics have been ordered on-call to the OR Preoperative EKG showed a left bundle branch block which was new when compared to prior EKGs Due to EKG findings as well as elevated blood pressure a hospitalist consultation was obtained They have ordered as needed IV Lopressor for elevated blood pressure Due to the new left bundle branch block and history of smoking they requested a cardiology evaluation and an echocardiogram The hospitalist feels cardiology evaluation is warranted unless the surgery is determined to be urgent Further recommendations will and timing of surgery will based on cardiology evaluation as well as evaluation by surgical attending Last evening I did discuss the findings on the EKG and reviewed patient's history with the on-call anesthesiologist -Repeat labs were performed this morning. A CBC showed white blood cell count had a slight rise to 12.4. His hemoglobin and platelet count remained within normal range. Patient's chemistry profile showed sodium and potassium remain normal. His BUN and creatinine remain normal. Patient had a lactate level checked and again is noted to be within normal range and not elevated Admission and Anticipated Discharge Date Admission Date: March 15, 2021 Supervising Physician Co-Signing Physician Notes Patient seen and examined, labs and imaging reviewed, agree with above. 65-year-old male presented with right lower quadrant abdominal pain and groin pain. On exam he is afebrile with stable vitals. He has a large right inguinal hernia that is partially reducible. No signs of strangulation. Labs are unremarkable. CT scan reveals a large right inguinal hernia containing both large and small bowel, with some fecalization of the small bowel consistent with a possible partial small bowel obstruction. No threatened bowel. He was admitted overnight and treated with pain medications. He did have some EKG changes as well as an episode of hypotension and cardiology has evaluated and deemed him an acceptable risk for surgery. Plan for diagnostic laparoscopy, laparoscopic right inguinal hernia repair, possible laparoscopic left inguinal hernia repair, possible open The risk the procedure were discussed to include but not limited to bleeding, infection, recurrence, damage surrounding structures, need for future more extensive surgery, conversion open, need for bowel resection, chronic pain, seroma/hematoma, and the risk of anesthesia The diagnosis, details the procedure and recovery, and plan of care discussed with the patient, all questions were answered, the patient expressed understanding agrees the plan of care as stated Subjective Since admission the patient does not note any worsening pain in his right groin but it is similar to what was noted in the emergency department. Patient notes he has required analgesics intermittently. Since admission he has not had any nausea or vomiting. He has not had a bowel movement or is not passing any flatus since admission. He denies any fevers, shakes, chills. Physical Exam Gastrointestinal (Abdomen): Abdominal exam is similar to what was noted at time of admission. Abdomen is rotund but soft. There is no rebound tenderness or guarding. Again I was unable to palpate any hernias in the left inguinal region. Patient did have a palpable hernia in the right groin that again is noted to be nonreducible. There is no erythema or discoloration of the skin in the right groin surrounding his hernia. Results & Data ([facility]) Vital Signs (Past 12 Hours) Vital Signs Temp Pulse Pulse Resp BP BP BP 03/16/21 04:00 163/91 H 03/16/21 02:19 36.5 C 67 18 176/97 H 03/16/21 02:11 67 03/16/21 00:00 68 18 132/89 03/15/21 22:01 74 20 03/15/21 22:00 72 21 161/107 H 03/15/21 21:31 72 17 03/15/21 21:30 74 19 180/91 H 03/15/21 21:28 68 18 03/15/21 20:34 67 18 03/15/21 20:30 65 20 172/105 H 03/15/21 20:08 69 20 03/15/21 19:18 36.6 C 80 18 220/121 H Pulse Ox 03/16/21 04:00 03/16/21 02:19 96 03/16/21 02:11 03/16/21 00:00 98 03/15/21 22:01 97 03/15/21 22:00 98 03/15/21 21:31 98 03/15/21 21:30 99 03/15/21 21:28 03/15/21 20:34 97 03/15/21 20:30 98 03/15/21 20:08 99 03/15/21 19:18 99 PG Care Time/CCT Total # of Minutes Spent Total Time Spent with Patient: Total time spent is greater than 50% in coordination of care (as documented) at patient's floor/unit and/or counseling patient: Coding Level of Care Code None Diagnoses Incarcerated right inguinal hernia K40.30
[2021-03-16] MEDS ORDERED: ceFAZolin 2000MG 2,000 MG/15 ML SYR IV SCH (06:00)
[2021-03-16 06:11] LABS: Creatine Kinase MB 1.2 ng/ml (0.5-3.6); Troponin I < 0.015 ng/ml (0-0.045)
[2021-03-16] MEDS: SERTRALINE HCL 50 MG TABLET PO SCH (08:02)
--- NOTE | 2021-03-16 08:08 | Anesthesiology Consultation ---
Date of Service March 16, 2021 Assessment & Plan (1) Encounter for pre-operative examination: Chart Review Chart Review: Acceptable Risk for Surgery and Patient NOT seen in Pre Admission Testing Consults Requested cardiac Per surgical team - Dr. Steiner evaluated the patient this morning and no further cardiac evaluation is required prior to planned surgical procedure. Proposed Anesthesia Risk / Benefits Reviewed With: PT / POA / Parent / Guardian, Accepts Plan and Informed Consent Obtained History Surgery Operation Date: 03/16/21 08:00 Proposed Procedures p Laparoscopic Hernia Repair - Alejandro Gary DO, FACS Height/Weight Height: 5 ft 10 in Weight: 98.6 kg Allergies Allergy/AdvReac Type Severity Reaction Status Date / Time No Known Allergies Allergy Mild Verified 03/15/21 21:29 Medications Home Medications Medication Instructions Recorded Confirmed Last Taken sertraline 50 mg tablet 50 mg PO DAILY #90 tab 12/18/19 03/15/21 Unknown triamcinolone acetonide 0.1 % 1 applic TOPICAL BID #30 g 09/11/20 03/15/21 03/15/21 topical cream omeprazole 20 mg capsule,delayed 20 mg PO DAILY #90 cap 12/24/20 03/15/21 03/15/21 release ibuprofen [Advil] 200 mg PO Q6H PRN 03/15/21 03/15/21 03/15/21 18:00 200 mg Active Medications Generic Name Dose Route Start Last Admin Trade Name Freq PRN Reason Stop Dose Admin Hydromorphone HCl 0.5 mg 03/16/21 08:10 03/16/21 09:09 Hydromorphone Inj 0.5 Mg/0.5 Ml Syr IV 03/30/21 08:09 0.5 mg Q3H PRN Administration Pain Lactated Ringer's 1,000 mls @ 100 mls/hr 03/16/21 01:42 03/16/21 02:37 Lr IV 04/15/21 01:41 100 mls/hr .Q10H NOHEMI Administration Acetaminophen 1,000 mg in 100 mls @ 400 mls/hr 03/16/21 01:42 03/16/21 02:27 Ofirmev IV 03/19/21 01:41 Infused Q8H PRN Infusion Pain Ondansetron HCl 4 mg 03/16/21 01:42 03/16/21 05:07 Ondansetron Inj 2 Mg/Ml 2 Ml Vial IV 04/15/21 01:41 4 mg Q6H PRN Administration Nausea And Vomiting Sertraline HCl 50 mg 03/16/21 09:00 03/16/21 08:02 Sertraline Hcl 50 Mg Tablet PO 04/15/21 08:59 Not Given DAILY NOHEMI NPO Date Last Intake of Fluids: 03/15/21 Date Last Intake of Solids: 03/15/21 Last Intake of Solids Comment: 03/15/2021 Past Medical History Medical History Flank pain GERD (gastroesophageal reflux disease) History of smoking HTN (hypertension) Incidental pulmonary nodule LBBB (left bundle branch block) Urinary symptom or sign Social History Smoking Status: Former smoker tobacco type: cigarettes Smoking cigarettes per day: 10 Do You Dip or Chew Tobacco: No Hx Alcohol Use: No Hx Substance Use: No Physical Exam Vital Signs Last Vital Signs Temp 36.7 C 03/16/21 07:09 Pulse 89 03/16/21 09:38 Resp 16 03/16/21 07:09 BP 163/90 H 03/16/21 09:38 Pulse Ox 94 03/16/21 07:09 Testing Laboratory Results 03/16/21 04:10 03/16/21 04:10 PT 10.9 Seconds (9.0-12.0) 03/15/21 19:54 INR 1.1 (0.9-1.1) 03/15/21 19:54 Urine Color Yellow 03/15/21 21:30 Urine Appearance Clear (Clear) 03/15/21 21:30 Urine pH 6.0 (4.5-7.5) 03/15/21 21:30 Ur Specific [place] 1.021 (1.000-1.030) 03/15/21 21:30 Urine Protein Negative (Negative) 03/15/21 21:30 Urine Glucose (UA) Negative (Negative) 03/15/21 21:30 Urine Ketones Negative (Negative) 03/15/21 21:30 Urine Nitrite Negative (Negative) 03/15/21 21:30 Ur Leukocyte Esterase Negative (Negative) 03/15/21 21:30 Electrocardiogram Date: 03/16/21 Findings: + LBBB and + SB @ (51) 1st degree AV block
[2021-03-16] MEDS: HYDROmorphone INJ 0.5 MG/0.5 ML SYR IV PRN (09:09)
--- NOTE | 2021-03-16 09:42 | Hospitalist Progress Note ---
Date of Service March 16, 2021 Assessment & Plan (1) Incarcerated right inguinal hernia: Headed to operating room today with general surgery for incarcerated right inguinal hernia Postoperative care as per them Continue pain control Keep n.p.o. No need for NG tube as per my discussion with general surgery this morning. -Follow CBC, CMP in the morning (2) LBBB (left bundle branch block): New LBBB - Noted on ER EKG to have new LBBB since previous EKG over 10 years ago. - No complaints of angina/anginal equivalents with rest or activity. - Smoking history, quit 3 months ago. -Patient has no evidence of CHF for angina Appreciate cardiology consultation No need for echocardiogram prior to surgery as per cardiology-we will get nonurgent echocardiogram on Wednesday (3) SBO (small bowel obstruction): As above, related to incarcerated inguinal hernia Headed for surgery soon (4) HTN (hypertension): Blood pressure is elevated especially with pain Control pain Not on medications at home (5) Incidental pulmonary nodule: Noted to have 13 mm nodules at the bases of the lungs on CT abdomen/pelvis Does have history of smoking This should be followed with chest CT when more stable (6) GERD (gastroesophageal reflux disease): Holding home PPI -Add IV Pepcid (7) History of smoking: Just quit 3 months ago (8) DVT prophylaxis: SCDs Disposition-continued stay, hospital service will follow along Admission and Anticipated Discharge Date Admission Date: March 15, 2021 Subjective Patient continuing to have significant pain in the right groin and lower abdomen when I saw him this morning. He denied any chest pain or shortness of breath. He did have an episode of hypotension this morning after receiving IV morphine which then resolved. He was also having significant nausea at the time. He has not vomited. I discussed his care with survey and mapping technician and the general surgeon. No need for NG tube as he is going to surgery here shortly. No need for echocardiogram prior to surgery. The patient normally is very active and never has any chest pain or shortness of breath. No evidence of CHF preoperatively or now. Telemetry with normal sinus rhythm with first-degree block with rhythm in the 70s. Review of Systems Review of Systems: All systems reviewed & are unremarkable except as noted in HPI & below Physical Exam Constitutional: WD/WN, vitals as above Eyes: + anicteric sclerae Neck: trachea midline, no thyromegaly Respiratory: normal respiratory effort, lungs clear to auscultation Cardiovascular: RRR, no murmur, no edema Chest (Breasts): Chest: normal inspection of chest Gastrointestinal (Abdomen): Inspection/Auscultation: + abdomen distended and + hypoactive bowel sounds Percussion/Palpation: + abdomen tender (Diffusely without guarding) and + hernia (Large in the right inguinal region) Musculoskeletal: Extremities: extremities normal to inspection; no cyanosis and no clubbing Skin: no rashes, warm and dry Neurologic: moves all extremities and awake; no focal motor deficits Psychiatric: A+Ox3, euthymic affect Lymphatic: no lymphedema Results & Data Results & Data ([facility]) Vital Signs (Past 12 Hours) Vital Signs Temp Pulse Pulse Pulse Resp BP BP 03/16/21 09:38 89 03/16/21 08:53 76 186/99 H 03/16/21 07:09 36.7 C 69 16 156/88 H 03/16/21 05:27 56 L 18 153/84 H 03/16/21 05:19 52 L 18 87/59 L 03/16/21 05:12 36.5 C 52 L 18 87/54 L 03/16/21 04:00 163/91 H 03/16/21 02:19 36.5 C 67 18 03/16/21 02:11 67 03/16/21 00:00 68 18 132/89 03/15/21 22:01 74 20 03/15/21 22:00 72 21 161/107 H BP Pulse Ox 03/16/21 09:38 163/90 H 03/16/21 08:53 200/120 H 03/16/21 07:09 94 03/16/21 05:27 100 03/16/21 05:19 96 03/16/21 05:12 97 03/16/21 04:00 03/16/21 02:19 176/97 H 96 03/16/21 02:11 03/16/21 00:00 98 03/15/21 22:01 97 03/15/21 22:00 98 Laboratory Results 03/16/21 03/16/21 03/16/21 Range/Units 05:26 04:10 04:10 WBC (4.8-10.8) K/uL RBC (4.7-6.1) M/uL Hgb (14.0-18.0) g/dL Hct (42-52) % MCV (80-100) fL MCH (25-34) pg MCHC (32-36) g/dL RDW Std Deviation (36.4-46.3) fL RDW Coeff of Rob (11.5-14.5) % Plt Count (130-400) K/uL MPV (7.4-10.4) fL Immature Gran % (Auto) % Neut % (Auto) % Lymph % (Auto) % Ballard % (Auto) % Eos % (Auto) % Baso % (Auto) % Neut # (Auto) (1.4-6.5) K/uL Lymph # (Auto) (1.2-3.4) K/uL Ballard # (Auto) (0.11-0.59) K/uL Eos # (Auto) (0-0.5) K/uL Baso # (Auto) (0-0.2) K/uL Immature Gran # (Auto) (0.00-0.02) K/uL PT (9.0-12.0) Seconds INR (0.9-1.1) Sodium 139 (136-145) mmol/L Potassium 3.9 (3.5-5.1) mmol/L Chloride 109 H (98-107) mmol/L Carbon Dioxide 25 (21-32) mmol/L Anion Gap 5.0 (3-11) BUN 14 (7-18) mg/dl Creatinine 0.89 (0.6-1.4) mg/dl Est Cr Clr Drug Dosing 96.1 ml/min Est GFR ( Amer) 103.3 ml/min Est GFR (Non-Af Amer) 89.1 ml/min BUN/Creatinine Ratio 15.3 (10-20) Glucose 120 H (70-99) mg/dl Estimat Average Glucose Hemoglobin A1c Lactate 0.8 (0.4-2.0) mmol/L Calcium 8.6 (8.5-10.1) mg/dl Total Bilirubin (0.2-1) mg/dl AST (15-37) U/L ALT (12-78) U/L Alkaline Phosphatase (45-117) U/L CK-MB (CK-2) 1.2 (0.5-3.6) ng/ml Troponin I < 0.015 (0-0.045) ng/ml Total Protein (6.4-8.2) gm/dl Albumin (3.4-5.0) gm/dl Globulin (2.5-4.0) gm/dl Albumin/Globulin Ratio (0.9-2) Triglycerides 318 H (0-150) mg/dl Cholesterol 171 (0-200) mg/dl LDL Cholesterol, Calc 82 mg/dl VLDL Cholesterol, Calc 64 mg/dl HDL Cholesterol 25 mg/dl Cholesterol/HDL Ratio 7 Lipase (73-393) U/L Urine Color Urine Appearance (Clear) Urine pH (4.5-7.5) Ur Specific [place] (1.000-1.030) Urine Protein (Negative) Urine Glucose (UA) (Negative) Urine Ketones (Negative) Urine Blood (Negative) Urine Nitrite (Negative) Urine Bilirubin (Negative) Urine Urobilinogen (Negative) Ur Leukocyte Esterase (Negative) COVID-19 Eval Order SARS-CoV-2 (PCR) (Negative) 03/16/21 03/16/21 03/15/21 Range/Units 04:10 04:10 21:30 WBC 12.47 H (4.8-10.8) K/uL RBC 4.71 (4.7-6.1) M/uL Hgb 14.0 (14.0-18.0) g/dL Hct 41.6 L (42-52) % MCV 88.3 (80-100) fL MCH 29.7 (25-34) pg MCHC 33.7 (32-36) g/dL RDW Std Deviation 44.5 (36.4-46.3) fL RDW Coeff of Rob 13.6 (11.5-14.5) % Plt Count 251 (130-400) K/uL MPV 11.3 H (7.4-10.4) fL Immature Gran % (Auto) 0.3 % Neut % (Auto) 70.6 % Lymph % (Auto) 17.8 % Ballard % (Auto) 10.6 % Eos % (Auto) 0.6 % Baso % (Auto) 0.1 % Neut # (Auto) 8.81 H (1.4-6.5) K/uL Lymph # (Auto) 2.22 (1.2-3.4) K/uL Ballard # (Auto) 1.32 H (0.11-0.59) K/uL Eos # (Auto) 0.07 (0-0.5) K/uL Baso # (Auto) 0.01 (0-0.2) K/uL Immature Gran # (Auto) 0.04 H (0.00-0.02) K/uL PT (9.0-12.0) Seconds INR (0.9-1.1) Sodium (136-145) mmol/L Potassium (3.5-5.1) mmol/L Chloride (98-107) mmol/L Carbon Dioxide (21-32) mmol/L Anion Gap (3-11) BUN (7-18) mg/dl Creatinine (0.6-1.4) mg/dl Est Cr Clr Drug Dosing ml/min Est GFR ( Amer) ml/min Est GFR (Non-Af Amer) ml/min BUN/Creatinine Ratio (10-20) Glucose (70-99) mg/dl Estimat Average Glucose Pending Hemoglobin A1c Pending Lactate (0.4-2.0) mmol/L Calcium (8.5-10.1) mg/dl Total Bilirubin (0.2-1) mg/dl AST (15-37) U/L ALT (12-78) U/L Alkaline Phosphatase (45-117) U/L CK-MB (CK-2) (0.5-3.6) ng/ml Troponin I (0-0.045) ng/ml Total Protein (6.4-8.2) gm/dl Albumin (3.4-5.0) gm/dl Globulin (2.5-4.0) gm/dl Albumin/Globulin Ratio (0.9-2) Triglycerides (0-150) mg/dl Cholesterol (0-200) mg/dl LDL Cholesterol, Calc mg/dl VLDL Cholesterol, Calc mg/dl HDL Cholesterol mg/dl Cholesterol/HDL Ratio Lipase (73-393) U/L Urine Color Yellow Urine Appearance Clear (Clear) Urine pH 6.0 (4.5-7.5) Ur Specific [place] 1.021 (1.000-1.030) Urine Protein Negative (Negative) Urine Glucose (UA) Negative (Negative) Urine Ketones Negative (Negative) Urine Blood Negative (Negative) Urine Nitrite Negative (Negative) Urine Bilirubin Negative (Negative) Urine Urobilinogen Negative (Negative) Ur Leukocyte Esterase Negative (Negative) COVID-19 Eval Order SARS-CoV-2 (PCR) (Negative) 03/15/21 03/15/21 03/15/21 Range/Units 20:10 20:10 19:54 WBC (4.8-10.8) K/uL RBC (4.7-6.1) M/uL Hgb (14.0-18.0) g/dL Hct (42-52) % MCV (80-100) fL MCH (25-34) pg MCHC (32-36) g/dL RDW Std Deviation (36.4-46.3) fL RDW Coeff of Rob (11.5-14.5) % Plt Count (130-400) K/uL MPV (7.4-10.4) fL Immature Gran % (Auto) % Neut % (Auto) % Lymph % (Auto) % Ballard % (Auto) % Eos % (Auto) % Baso % (Auto) % Neut # (Auto) (1.4-6.5) K/uL Lymph # (Auto) (1.2-3.4) K/uL Ballard # (Auto) (0.11-0.59) K/uL Eos # (Auto) (0-0.5) K/uL Baso # (Auto) (0-0.2) K/uL Immature Gran # (Auto) (0.00-0.02) K/uL PT 10.9 (9.0-12.0) Seconds INR 1.1 (0.9-1.1) Sodium (136-145) mmol/L Potassium (3.5-5.1) mmol/L Chloride (98-107) mmol/L Carbon Dioxide (21-32) mmol/L Anion Gap (3-11) BUN (7-18) mg/dl Creatinine (0.6-1.4) mg/dl Est Cr Clr Drug Dosing ml/min Est GFR ( Amer) ml/min Est GFR (Non-Af Amer) ml/min BUN/Creatinine Ratio (10-20) Glucose (70-99) mg/dl Estimat Average Glucose Hemoglobin A1c Lactate (0.4-2.0) mmol/L Calcium (8.5-10.1) mg/dl Total Bilirubin (0.2-1) mg/dl AST (15-37) U/L ALT (12-78) U/L Alkaline Phosphatase (45-117) U/L CK-MB (CK-2) (0.5-3.6) ng/ml Troponin I (0-0.045) ng/ml Total Protein (6.4-8.2) gm/dl Albumin (3.4-5.0) gm/dl Globulin (2.5-4.0) gm/dl Albumin/Globulin Ratio (0.9-2) Triglycerides (0-150) mg/dl Cholesterol (0-200) mg/dl LDL Cholesterol, Calc mg/dl VLDL Cholesterol, Calc mg/dl HDL Cholesterol mg/dl Cholesterol/HDL Ratio Lipase (73-393) U/L Urine Color Urine Appearance (Clear) Urine pH (4.5-7.5) Ur Specific [place] (1.000-1.030) Urine Protein (Negative) Urine Glucose (UA) (Negative) Urine Ketones (Negative) Urine Blood (Negative) Urine Nitrite (Negative) Urine Bilirubin (Negative) Urine Urobilinogen (Negative) Ur Leukocyte Esterase (Negative) COVID-19 Eval Order Covid19 at [facility] SARS-CoV-2 (PCR) NEGATIVE (Negative) 03/15/21 03/15/21 03/15/21 Range/Units 19:54 19:54 19:54 WBC 9.94 (4.8-10.8) K/uL RBC 4.83 (4.7-6.1) M/uL Hgb 14.5 (14.0-18.0) g/dL Hct 42.7 (42-52) % MCV 88.4 (80-100) fL MCH 30.0 (25-34) pg MCHC 34.0 (32-36) g/dL RDW Std Deviation 44.2 (36.4-46.3) fL RDW Coeff of Rob 13.5 (11.5-14.5) % Plt Count 253 (130-400) K/uL MPV 11.2 H (7.4-10.4) fL Immature Gran % (Auto) 0.2 % Neut % (Auto) 71.6 % Lymph % (Auto) 19.2 % Ballard % (Auto) 8.2 % Eos % (Auto) 0.7 % Baso % (Auto) 0.1 % Neut # (Auto) 7.11 H (1.4-6.5) K/uL Lymph # (Auto) 1.91 (1.2-3.4) K/uL Ballard # (Auto) 0.82 H (0.11-0.59) K/uL Eos # (Auto) 0.07 (0-0.5) K/uL Baso # (Auto) 0.01 (0-0.2) K/uL Immature Gran # (Auto) 0.02 (0.00-0.02) K/uL PT (9.0-12.0) Seconds INR (0.9-1.1) Sodium 138 (136-145) mmol/L Potassium 4.1 (3.5-5.1) mmol/L Chloride 107 (98-107) mmol/L Carbon Dioxide 26 (21-32) mmol/L Anion Gap 5.0 (3-11) BUN 15 (7-18) mg/dl Creatinine 1.02 (0.6-1.4) mg/dl Est Cr Clr Drug Dosing 85.2 ml/min Est GFR ( Amer) 88.4 ml/min Est GFR (Non-Af Amer) 76.2 ml/min BUN/Creatinine Ratio 14.7 (10-20) Glucose 107 H (70-99) mg/dl Estimat Average Glucose Hemoglobin A1c Lactate 1.1 (0.4-2.0) mmol/L Calcium 9.1 (8.5-10.1) mg/dl Total Bilirubin 0.3 (0.2-1) mg/dl AST 18 (15-37) U/L ALT 25 (12-78) U/L Alkaline Phosphatase 57 (45-117) U/L CK-MB (CK-2) (0.5-3.6) ng/ml Troponin I (0-0.045) ng/ml Total Protein 7.8 (6.4-8.2) gm/dl Albumin 3.5 (3.4-5.0) gm/dl Globulin 4.3 H (2.5-4.0) gm/dl Albumin/Globulin Ratio 0.8 L (0.9-2) Triglycerides (0-150) mg/dl Cholesterol (0-200) mg/dl LDL Cholesterol, Calc mg/dl VLDL Cholesterol, Calc mg/dl HDL Cholesterol mg/dl Cholesterol/HDL Ratio Lipase 178 (73-393) U/L Urine Color Urine Appearance (Clear) Urine pH (4.5-7.5) Ur Specific [place] (1.000-1.030) Urine Protein (Negative) Urine Glucose (UA) (Negative) Urine Ketones (Negative) Urine Blood (Negative) Urine Nitrite (Negative) Urine Bilirubin (Negative) Urine Urobilinogen (Negative) Ur Leukocyte Esterase (Negative) COVID-19 Eval Order SARS-CoV-2 (PCR) (Negative) PG Care Time/CCT Total # of Minutes Spent Total Time Spent with Patient: Total time spent is greater than 50% in coordination of care (as documented) at patient's floor/unit and/or counseling patient: Coding Level of Care Code 91768 Subseq Hosp Care Lvl 3 Diagnoses Incarcerated right inguinal hernia K40.30 LBBB (left bundle branch block) I44.7 SBO (small bowel obstruction) K56.609 HTN (hypertension) I10 Hypertension type: unspecified Incidental pulmonary nodule R91.1 GERD (gastroesophageal reflux disease) K21.9 History of smoking Z87.891 DVT prophylaxis Z29.9 (1) HTN (hypertension) Hypertension type: unspecified Qualified Code(s): I10 - Essential (primary) hypertension
[2021-03-16] MEDS ORDERED: fentaNYL citrate 100 MCG/2 ML VIAL ONE ×2 (10:30→13:27)
[2021-03-16] MEDS ORDERED: PROPOFOL IV EMULSION 10 MG/ML 20 ML VIAL IV ONE (10:31)
[2021-03-16] MEDS ORDERED: DEXAMETHASONE SOD INJ 4 MG/ML VIAL ONE (10:31)
[2021-03-16] MEDS ORDERED: ONDANSETRON INJ 2 MG/ML 2 ML VIAL ONE ×2 (10:31→14:12)
[2021-03-16] MEDS ORDERED: LIDOCAINE 2% 2 ML VIAL/AMP(20MG/ML) INFIL ONE (10:31)
[2021-03-16] MEDS ORDERED: SUCCINYLCHOLINE CHLORIDE 20 MG/ML 10 ML VIAL IV ONE (10:35)
[2021-03-16] MEDS ORDERED: BUPIVACAINE 0.5 % 5 MG/1 ML MPF 30ML VIAL ONE (10:38)
--- NOTE | 2021-03-16 10:40 | Cardiology Consultation ---
Date of Consultation March 16, 2021 Assessment & Plan (1) LBBB (left bundle branch block): (2) Preop cardiovascular exam: (3) HTN (hypertension): ASSESSMENT/PLAN: 1. LBBB: Discussed diagnosis with patient. Asymptomatic. Non urgent echocardiogram. 2. Hypertension: Blood pressure has been elevated but may be related to pain. If blood pressure remains elevated when pain is adequately controlled, would recommend antihypertensive agents to optimize blood pressure. 3. Preoperative cardiac assessment: He is able to achieve > 4 METS without anginal symptoms. Chronic dyspnea with exertion has improved with smoking cessation and regular exercise. Ischemic evaluation is not necessary prior to undergoing surgical procedure for incarcerated inguinal hernia with small bowel obstruction. This was communicated with surgical team, Brian Levine, at 8:41 a.m., immediately following patient evaluation. 4. Disposition: Cardiology will sign off at this time unless echocardiogram has significant abnormality requiring change in therapy. Please call with any questions or concerns. Plan of care discussed with Dr. Styles of the primary hospitalist service, as well as surgical team, Brian Levine. Today's visit was 42 minutes in duration, include [id number] time, counseling patient, coordinating care, reviewing records, discussing with other providers, and completing documentation. Thank you for allowing me to participate in the care of your patient. Please call for any other questions or concerns. Sincerely, Joe Daily M.D. History of Present Illness Reason for Consultation: LBBB; preop evaluation Requesting Physician: Verónica Good Attending Physician: Alejandro Gary DO, FACS History of Present Illness Mr. Agarwal is a pleasant 65-year-old gentleman with a history significant for depression and acid reflux. He was admitted on 03/15/2021 for concern of incarcerated right inguinal hernia. On presentation, he was noted to have a left bundle-branch block on ECG which was new compared to prior ECG on 11/29/2008. Earlier this morning, he also had an episode of nausea, diaphoresis, and hypotension following morphine administration. His heart rate was reportedly in the 50s with systolic blood pressure in the 80s. He denies chest pain or shortness of breath. Within 3-5 minutes, symptoms spontaneously resolved and have not returned. Blood pressure normalized. He walks his dog on a regular basis for 20-30 minutes at a time, most days of the week. He denies chest pain today or with recent exertional activities. He has a history of dyspnea with exertion which he has attributed to his smoking habit. He quit smoking approximately 3 months ago and with regular walking, he has noted improvement in his dyspnea. He otherwise denies shortness of breath, syncope, near-syncope, palpitations, edema, or bleeding. He continues to have pain in his right inguinal area, which has improved intermittently with pain medications. Review of systems: As above. Review of systems otherwise negative/u nremarkable. Family history: No known premature CAD. Social history: He quit smoking approximately 3 months ago but had smoked up to 1 pack per day for many years. No alcohol or drug abuse. . Lives with his girlfriend. He has 1 daughter, but has not been in contact with her in some time and he does not know where she lives. He has grandchildren. He has worked many different jobs throughout his life. He is currently retired. He was unaccompanied today. Allergies Allergy/AdvReac Type Severity Reaction Status Date / Time No Known Allergies Allergy Mild Verified 03/15/21 21:29 Home Medications Medication Instructions Recorded Confirmed Type sertraline 50 mg tablet 50 mg PO DAILY #90 tab 12/18/19 03/15/21 Rx triamcinolone acetonide 0.1 % 1 applic TOPICAL BID #30 g 09/11/20 03/15/21 Rx topical cream omeprazole 20 mg capsule,delayed 20 mg PO DAILY #90 cap 12/24/20 03/15/21 Rx release ibuprofen [Advil] 200 mg PO Q6H PRN 03/15/21 03/15/21 History Patient History Medical History Flank pain GERD (gastroesophageal reflux disease) History of smoking HTN (hypertension) Incidental pulmonary nodule LBBB (left bundle branch block) Urinary symptom or sign Social History Smoking Status: Former smoker Cigarettes Per Day: 10; Second Hand Exposure: No; Do You Dip or Chew Tobacco: No; Tobacco Cessation Education Requested by Patient: No Hx Alcohol Use: No Hx Substance Use: No Preferred Language: Vietnamese Communication Ability: Effective Beliefs That Will Affect Care: None Current Living Situation: Spouse Other Information That Helps Us Care for You: No Feels Safe at Home: Yes Safety Concerns: Feels Safe At This Time Assistive Devices: Glasses Physical Exam Physical Exam: Gen.: No acute distress. Alert and oriented. HEENT: Anicteric sclera. Neck: No JVD. No bruits. Normal carotid upstrokes bilaterally. Cardiac: PMI was nondisplaced. No ventricular heave. Regular rate and rhythm. Normal S1-S2. 1/6 systolic murmur. No rubs or gallops. Pulmonary: Clear to auscultation bilaterally without wheezes, rales, or rhonchi. Abdomen: Soft, nontender, nondistended, with normoactive bowel sounds. No bruits noted. Extremities: 2+ radial pulses bilaterally. 2+ posterior tibialis pulses bilaterally. No edema or cyanosis. Psychiatric: Affect appears appropriate. Results & Data ([facility]) Vital Signs (Past 12 Hours) Vital Signs Temp Pulse Pulse Pulse Resp BP BP 03/16/21 09:38 89 03/16/21 08:53 76 186/99 H 03/16/21 07:09 36.7 C 69 16 156/88 H 03/16/21 05:27 56 L 18 153/84 H 03/16/21 05:19 52 L 18 87/59 L 03/16/21 05:12 36.5 C 52 L 18 87/54 L 03/16/21 04:00 163/91 H 03/16/21 02:19 36.5 C 67 18 03/16/21 02:11 67 03/16/21 00:00 68 18 132/89 BP Pulse Ox 03/16/21 09:38 163/90 H 03/16/21 08:53 200/120 H 03/16/21 07:09 94 03/16/21 05:27 100 03/16/21 05:19 96 03/16/21 05:12 97 03/16/21 04:00 03/16/21 02:19 176/97 H 96 03/16/21 02:11 03/16/21 00:00 98 Laboratory Results Laboratory Results - last 24 hr 03/15/21 03/15/21 03/15/21 19:54 19:54 19:54 WBC 9.94 RBC 4.83 Hgb 14.5 Hct 42.7 MCV 88.4 MCH 30.0 MCHC 34.0 RDW Std Deviation 44.2 RDW Coeff of Rob 13.5 Plt Count 253 MPV 11.2 H Immature Gran % (Auto) 0.2 Neut % (Auto) 71.6 Lymph % (Auto) 19.2 [place] % (Auto) 8.2 Eos % (Auto) 0.7 Baso % (Auto) 0.1 Neut # (Auto) 7.11 H Lymph # (Auto) 1.91 [place] # (Auto) 0.82 H Eos # (Auto) 0.07 Baso # (Auto) 0.01 Immature Gran # (Auto) 0.02 PT INR Sodium 138 Potassium 4.1 Chloride 107 Carbon Dioxide 26 Anion Gap 5.0 BUN 15 Creatinine 1.02 Est Cr Clr Drug Dosing 85.2 Est GFR ( Amer) 88.4 Est GFR (Non-Af Amer) 76.2 BUN/Creatinine Ratio 14.7 Glucose 107 H Estimat Average Glucose Hemoglobin A1c Lactate 1.1 Calcium 9.1 Total Bilirubin 0.3 AST 18 ALT 25 Alkaline Phosphatase 57 CK-MB (CK-2) Troponin I Total Protein 7.8 Albumin 3.5 Globulin 4.3 H Albumin/Globulin Ratio 0.8 L Triglycerides Cholesterol LDL Cholesterol, Calc VLDL Cholesterol, Calc HDL Cholesterol Cholesterol/HDL Ratio Lipase 178 Urine Color Urine Appearance Urine pH Ur Specific [place] Urine Protein Urine Glucose (UA) Urine Ketones Urine Blood Urine Nitrite Urine Bilirubin Urine Urobilinogen Ur Leukocyte Esterase COVID-19 Eval Order SARS-CoV-2 (PCR) 03/15/21 03/15/21 03/15/21 19:54 20:10 20:10 WBC RBC Hgb Hct MCV MCH MCHC RDW Std Deviation RDW Coeff of Rob Plt Count MPV Immature Gran % (Auto) Neut % (Auto) Lymph % (Auto) [place] % (Auto) Eos % (Auto) Baso % (Auto) Neut # (Auto) Lymph # (Auto) [place] # (Auto) Eos # (Auto) Baso # (Auto) Immature Gran # (Auto) PT 10.9 INR 1.1 Sodium Potassium Chloride Carbon Dioxide Anion Gap BUN Creatinine Est Cr Clr Drug Dosing Est GFR ( Amer) Est GFR (Non-Af Amer) BUN/Creatinine Ratio Glucose Estimat Average Glucose Hemoglobin A1c Lactate Calcium Total Bilirubin AST ALT Alkaline Phosphatase CK-MB (CK-2) Troponin I Total Protein Albumin Globulin Albumin/Globulin Ratio Triglycerides Cholesterol LDL Cholesterol, Calc VLDL Cholesterol, Calc HDL Cholesterol Cholesterol/HDL Ratio Lipase Urine Color Urine Appearance Urine pH Ur Specific [place] Urine Protein Urine Glucose (UA) Urine Ketones Urine Blood Urine Nitrite Urine Bilirubin Urine Urobilinogen Ur Leukocyte Esterase COVID-19 Eval Order Covid19 at [facility] SARS-CoV-2 (PCR) NEGATIVE 03/15/21 03/16/21 03/16/21 21:30 04:10 04:10 WBC 12.47 H RBC 4.71 Hgb 14.0 Hct 41.6 L MCV 88.3 MCH 29.7 MCHC 33.7 RDW Std Deviation 44.5 RDW Coeff of Rob 13.6 Plt Count 251 MPV 11.3 H Immature Gran % (Auto) 0.3 Neut % (Auto) 70.6 Lymph % (Auto) 17.8 [place] % (Auto) 10.6 Eos % (Auto) 0.6 Baso % (Auto) 0.1 Neut # (Auto) 8.81 H Lymph # (Auto) 2.22 [place] # (Auto) 1.32 H Eos # (Auto) 0.07 Baso # (Auto) 0.01 Immature Gran # (Auto) 0.04 H PT INR Sodium Potassium Chloride Carbon Dioxide Anion Gap BUN Creatinine Est Cr Clr Drug Dosing Est GFR ( Amer) Est GFR (Non-Af Amer) BUN/Creatinine Ratio Glucose Estimat Average Glucose Pending Hemoglobin A1c Pending Lactate Calcium Total Bilirubin AST ALT Alkaline Phosphatase CK-MB (CK-2) Troponin I Total Protein Albumin Globulin Albumin/Globulin Ratio Triglycerides Cholesterol LDL Cholesterol, Calc VLDL Cholesterol, Calc HDL Cholesterol Cholesterol/HDL Ratio Lipase Urine Color Yellow Urine Appearance Clear Urine pH 6.0 Ur Specific [place] 1.021 Urine Protein Negative Urine Glucose (UA) Negative Urine Ketones Negative Urine Blood Negative Urine Nitrite Negative Urine Bilirubin Negative Urine Urobilinogen Negative Ur Leukocyte Esterase Negative COVID-19 Eval Order SARS-CoV-2 (PCR) 03/16/21 03/16/21 03/16/21 04:10 04:10 05:26 WBC RBC Hgb Hct MCV MCH MCHC RDW Std Deviation RDW Coeff of Rob Plt Count MPV Immature Gran % (Auto) Neut % (Auto) Lymph % (Auto) [place] % (Auto) Eos % (Auto) Baso % (Auto) Neut # (Auto) Lymph # (Auto) [place] # (Auto) Eos # (Auto) Baso # (Auto) Immature Gran # (Auto) PT INR Sodium 139 Potassium 3.9 Chloride 109 H Carbon Dioxide 25 Anion Gap 5.0 BUN 14 Creatinine 0.89 Est Cr Clr Drug Dosing 96.1 Est GFR ( Amer) 103.3 Est GFR (Non-Af Amer) 89.1 BUN/Creatinine Ratio 15.3 Glucose 120 H Estimat Average Glucose Hemoglobin A1c Lactate 0.8 Calcium 8.6 Total Bilirubin AST ALT Alkaline Phosphatase CK-MB (CK-2) 1.2 Troponin I < 0.015 Total Protein Albumin Globulin Albumin/Globulin Ratio Triglycerides 318 H Cholesterol 171 LDL Cholesterol, Calc 82 VLDL Cholesterol, Calc 64 HDL Cholesterol 25 Cholesterol/HDL Ratio 7 Lipase Urine Color Urine Appearance Urine pH Ur Specific [place] Urine Protein Urine Glucose (UA) Urine Ketones Urine Blood Urine Nitrite Urine Bilirubin Urine Urobilinogen Ur Leukocyte Esterase COVID-19 Eval Order SARS-CoV-2 (PCR) Diagnostic Findings Telemetry personally reviewed: Sinus rhythm. ECGs personally reviewed: ECG 03/15/2021: Sinus rhythm first-degree AV block 75 beats per minute. LBBB. LBBB new compared to prior ECG on 11/29/2008. ECG 03/16/2021 5:21 a.m.: Sinus bradycardia first-degree AV block [address] abdomen pelvis 03/15/2021: Large right inguinal hernia containing cecum and distal ileum. Evidence of incarceration with upstream small bowel obstruction. Moderate fat containing left inguinal hernia. Hepatic steatosis. Evidence of interstitial lung disease at lung bases. Bibasilar pulmonary nodules. Medications Administered Current Inpatient Medications Hydromorphone HCl (Hydromorphone Inj 0.5 Mg/0.5 Ml Syr) 0.5 mg IV Q3H PRN PRN Reason: Pain Stop: 03/30/21 08:09 Last Admin: 03/16/21 09:09 Dose: 0.5 mg Documented by: Lactated Ringer's (Lr) 1,000 mls @ 100 mls/hr IV .Q10H NOHEMI Stop: 04/15/21 01:41 Last Admin: 03/16/21 02:37 Dose: 100 mls/hr Documented by: Acetaminophen (Ofirmev) 1,000 mg in 100 mls @ 400 mls/hr IV Q8H PRN PRN Reason: Pain Stop: 03/19/21 01:41 Last Infusion: 03/16/21 02:27 Dose: Infused Documented by: Cefazolin Sodium (Ancef 2000mg) 2,000 mg in 15 mls @ 3.75 mls/min IV PREOP NOHEMI Stop: 03/16/21 18:00 Metoprolol Tartrate (Metoprolol Tartrate 1 Mg/Ml Vial) 5 mg IV Q6 PRN PRN Reason: BP > 180/110 Stop: 04/15/21 01:41 Ondansetron HCl (Ondansetron Inj 2 Mg/Ml 2 Ml Vial) 4 mg IV Q6H PRN PRN Reason: Nausea And Vomiting Stop: 04/15/21 01:41 Last Admin: 03/16/21 05:07 Dose: 4 mg Documented by: Sertraline HCl (Sertraline Hcl 50 Mg Tablet) 50 mg PO DAILY NOHEMI Stop: 04/15/21 08:59 Last Admin: 03/16/21 08:02 Dose: Not Given Documented by: PG Care Time/CCT Total # of Minutes Spent Total Time Spent with Patient: Total time spent is greater than 50% in coordina tion of care (as documented) at patient's floor/unit and/or counseling patient: Coding Level of Care Code 73781 Office/Outpt Visit, New Diagnoses LBBB (left bundle branch block) I44.7 Preop cardiovascular exam Z01.810 HTN (hypertension) I10 Hypertension type: unspecified Time Spent (min) 42 (1) HTN (hypertension) Hypertension type: unspecified Qualified Code(s): I10 - Essential (primary) hypertension
[2021-03-16] MEDS ORDERED: PHENYLEPHRINE HCL 10 MG/ML VIAL ONE (11:35)
[2021-03-16] MEDS ORDERED: ePHEDrine sulfate 50 MG/ML AMP ONE (11:35)
[2021-03-16] MEDS ORDERED: GLYCOPYRROLATE 0.2 MG/ML VIAL ONE (14:19)
[2021-03-16] MEDS ORDERED: NEOSTIGMINE METHYLSULFATE 1 MG/ML 10ML VIAL ONE (14:20)
--- NOTE | 2021-03-16 14:38 | Operative Report ---
PG Post Operative Report Pre & Post Diagnosis Operation Date: 03/16/21 08:00 Pre-Op Diagnosis: Incarcerated right inguinal hernia with bowel obstruction Post-Op Diagnosis: Incarcerated right inguinal hernia with bowel obstruction I identified the patient and participated in the time-out.: Yes Procedure Operation Date: 03/16/21 08:00 Actual Procedures p Diagnostic Laparoscopy, Laparoscopic Right Inguinal Hernia Repair with Mesh(Right) - Alejandro Gary DO, PANCHITO Surgeon Alejandro Gary DO, PANCHITO Coat Tailor Soha Mehta Estimated Blood Loss 10 Findings Consistent with Post-Op Diagnosis Diagnostic laparoscopy performed, cecum and several feet of ileum herniated through indirect right inguinal hernia. This was reduced. Attempted to perform TEP repair but peritoneum tore. Proceeded with ROVERTO repair. Large indirect hernia sac with significant scarring to cord completely reduced. No evidence of direct hernia. ProGrip mesh placed and covered the direct, indirect, and femoral defects. Peritoneum tacked with sorbafix. Specimens None Anesthesia Type General Complications none Disposition Accompanied Patient To Recovery: No Disposition: Recovery Room Indications 65-year-old male with large right inguinal hernia with incarcerated colon and small bowel. There was evidence of a partial bowel bowel obstruction but no threatened bowel. The patient was admitted with plans to taken to the operating the following morning. He was cleared by cardiology prior to proceeding to the OR. Plan for diagnostic laparoscopy, laparoscopic right inguinal hernia repair, possible open, possible left inguinal hernia repair. The risks of the procedure were discussed, all questions were answered, and the patient agreed to proceed with surgery as planned. Description of Procedure The patient was properly identified, consented, and taken to the operating room where he was placed in the supine position. General endotracheal anesthesia was induced. SCDs and a safety belt were placed. A lowry catheter was placed. Preoperative antibiotics were administered. The patient's groins and abdomen were prepped and draped in the standard sterile fashion. Surgical timeout was performed and all parties were in agreement that this was the correct patient and procedure to be performed and we continued as planned. An incision was made in the left upper quadrant and the Veress needle inserted. Saline drop test confirmed entry into the abdomen. The abdomen was insufflated with carbon dioxide with the patient tolerated without incident. Using the Optiview technique a 5 mm trocar was inserted. The abdomen was examined and no damage from initial trocar Veress needle placement was noted. The abdomen was explored and there was evidence of a large right inguinal hernia containing colon and small bowel. 5 mm port was then placed in the right upper quadrant. I was able to completely reduce the hernia using a pressure and gentle traction on the bowel. The bowel appeared viable and there was no evidence of ischemia. I then proceeded to attempt a totally extraperitoneal repair. A transverse infraumbilical incision was made to the left of midline with electrocautery and deepened down to the fascia with blunt dissection. A transverse incision was made in the anterior rectus sheath on the left. The rectus muscle was pulled laterally exposing the posterior rectus sheath. A large Lor was used to bluntly dissect the preperitoneal space down to the pubic symphysis. I was unable to keep insufflation so aborted this portion of the procedure.. This was then replaced with a laparoscopic preperitoneal dissection balloon. This was inflated, however there was minimal resistance and it was obvious that we were not in the preperitoneal space. We looked into the abdominal cavity with the scope and noted that the peritoneum and tore and we were in the intra-abdominal space. I did attempt to place a 5 mm port above the pubic symphysis in order to aid in dissection. We were unable to perform this adequately so I aborted the totally extraperitoneal approach. The 5 mm and Spacemaker port were removed. The anterior fascia was closed with interrupted 0 Vicryl [id number] sutures. An 11 mm port was then placed inferior and lateral to the xiphoid. We then placed the patient in steep Trendelenburg position and rotated to the left. A peritoneal flap was created using the cautery. Dissection started on the right, beginning laterally at the anterior superior iliac spine. Erik's ligament was then dissected medially. The cord structures were circumferentially dissected. A very large indirect inguinal hernia was noted. It was significantly scarred to the cords. The patient's intra-abdominal obesity made it difficult for the dissection as well. It was dissected away from the cord structures. Due to the length of the case and difficulty, I did not attempt to repair on the left side. Progrip mesh was placed on the right and covered the direct, indirect, and femoral spaces. The intra-abdominal pressure was decreased and the peritoneal flap was tacked back up using sorbafix The abdomen was again explored and there was the bowel appeared healthy. The ports were removed, and the space was allowed to collapse. The 11 mm port site fascia was closed with 0 Vicryl. The skin of all port sites were closed with 4- 0 Monocryl subcuticular suture, and Dermabond was placed over the incisions. The patient was extubated in the operating room and taken to the PACU for recovery without apparent incident. Any air in the scrotum was reduced, and the testicles were confirmed to be in the scrotum. All sponge, instrument, and needle counts were correct at the conclusion of the procedure. The patient tolerated the procedure well. The Lowry catheter was left in place. Physician's executive marketing assistant was present and scrubbed for the entire the case. She was critical in positioning the patient, prepping and draping, retraction and exposure, driving the laparoscope, closure the incisions, and placement of the dressings. I attest to the content of the Intraoperative Record and any orders documented therein. Any exceptions are noted below.
[2021-03-16] MEDS ORDERED: HYDROmorphone INJ 1 MG/ML SYRINGE IV PRN (15:51)
[2021-03-16] MEDS ORDERED: ROCURONIUM BROMIDE 10 MG/ML 5 ML VIAL IV ONE (16:11)
[2021-03-16] MEDS: cefOXitin 2,000 MG in DEXTROSE 5% 50 ML IV SCH ×2 (16:22→21:57)
[2021-03-16] MEDS: FAMOTIDINE 20 MG in SYRINGE 3 ML IV SCH (21:57)
--- NOTE | 2021-03-17 00:23 | Electrocardiogram Report ---
Test Reason : Blood Pressure : / mmHG Vent. Rate : 075 BPM Atrial Rate : 075 BPM P-R Int : 320 ms QRS Dur : 156 ms QT Int : 446 ms P-R-T Axes : 052 -38 100 degrees QTc Int : 498 ms Sinus rhythm with 1st degree A-V block Left axis deviation Left bundle branch block Abnormal ECG When compared with ECG of 29-NOV-2008 11:54, AK interval has increased Left bundle branch block is now Present Confirmed by Nick Daily ([id number]) on 03/17/2021 12:22:41 AM Referred By: REFERRED SELF Confirmed By:Nick Daily
[2021-03-17] MEDS: LACTATED RINGER'S 1,000 ML IV SCH ×2 (02:06→10:49)
[2021-03-17] MEDS: cefOXitin 2,000 MG in DEXTROSE 5% 50 ML IV SCH ×2 (04:29→10:26)
--- NOTE | 2021-03-17 06:24 | Electrocardiogram Report ---
Test Reason : Blood Pressure : / mmHG Vent. Rate : 051 BPM Atrial Rate : 051 BPM P-R Int : 328 ms QRS Dur : 156 ms QT Int : 514 ms P-R-T Axes : 026 -23 168 degrees QTc Int : 473 ms Sinus bradycardia with 1st degree A-V block Left bundle branch block Abnormal ECG When compared with ECG of 15-MAR-2021 19:49, T wave inversion more evident in Anterolateral leads Confirmed by Nick Daily ([id number]) on 03/17/2021 6:24:31 AM Referred By: REFERRED SELF Confirmed By:Nick Daily
[2021-03-17 06:46] LABS: Basophils # (auto) 0.01 K/uL (0-0.2); Basophils % (auto) 0.1 %; Eosinophils # (auto) 0.02 K/uL (0-0.5); Eosinophils % (auto) 0.2 %; Hematocrit (blood only) 40.9 % (42-52); Hemoglobin 13.5 g/dL (14.0-18.0); Immature Granulocytes # (auto) 0.04 K/uL (0.00-0.02); Immature Granulocytes % (auto) 0.4 %; Lymphocytes # (auto) 1.91 K/uL (1.2-3.4); Mean Corpuscular Hemoglobin 29.1 pg (25-34); Mean Corpuscular Volume 88.1 fL (80-100); Mean Platelet Volume 11.3 fL (7.4-10.4); Monocytes # (auto) 1.85 K/uL (0.11-0.59); Monocytes % (auto) 16.5 %; Neutrophils # (auto) 7.39 K/uL (1.4-6.5); Neutrophils % (auto) 65.8 %; Platelet Count 244 K/uL (130-400); RDW Coefficient of Variation 14.4 % (11.5-14.5); RDW Standard Deviation 46.7 fL (36.4-46.3); Red Blood Count 4.64 M/uL (4.7-6.1); White Blood Count 11.22 K/uL (4.8-10.8)
[2021-03-17 07:19] LABS: Estimated Average Glucose 131 mg/dl; Hemoglobin A1C 6.2 % (4.5-5.6)
[2021-03-17 07:24] LABS: Albumin Level 2.6 gm/dl (3.4-5.0); BUN Creatinine Ratio 17.3 (10-20); Calcium 8.4 mg/dl (8.5-10.1); Creatinine Clr Calc Pharmacy 63.6 ml/min; Est GFR (Non-African American) 54.3 ml/min; Magnesium 1.9 mg/dl (1.8-2.4); Potassium 4.1 mmol/L (3.5-5.1)
[2021-03-17 07:38] LABS: Albumin Globulin Ratio 0.7 (0.9-2); Bilirubin,Total 0.7 mg/dl (0.2-1); Globulin 3.7 gm/dl (2.5-4.0); Thyroid Stimulating Hormone 0.416 uIu/ml (0.300-4.500); Total Protein 6.3 gm/dl (6.4-8.2)
[2021-03-17] MEDS: SERTRALINE HCL 50 MG TABLET PO SCH (08:38)
[2021-03-17] MEDS: FAMOTIDINE 20 MG in SYRINGE 3 ML IV SCH (08:38)
[2021-03-17] MEDS: HYDROmorphone INJ 0.5 MG/0.5 ML SYR IV PRN ×2 (08:44→14:43)
--- NOTE | 2021-03-17 10:24 | Surgery Progress Note ---
Date of Service March 17, 2021 Assessment & Plan (1) Incarcerated right inguinal hernia: POD 1 inguinal hernia repair resume diet d/c lowry f/u later today Admission and Anticipated Discharge Date Admission Date: March 15, 2021 Supervising Physician Co-Signing Physician Notes pnt s&e, agree with above. POD#1 lap right inguinal hernia for incarceration with obstruction. Doing well, feeling better. lowry pulled this morning, dtv later today. tolerating clears, no pain. on exam afvss. abd soft, nt, nd. incisions c/d/i, no infection. no scrotal hematoma/seroma. will advance diet, may d/c this afternoon if pain controlled, tolerates regular diet, and voids. Follow up in 2 weeks. return precautions given, activity restrictions and wound care instructions reviewed Subjective some groin pain, no nausea Physical Exam Gastrointestinal (Abdomen): Inspection/Auscultation: + abdominal surgical incision (clean, dry) Percussion/Palpation: abdomen soft no scrotal edema or ecchymosis Results & Data ([facility] [place]) Vital Signs (Past 12 Hours) Vital Signs Temp Pulse Pulse Resp BP Pulse Ox 03/17/21 07:30 83 03/17/21 07:00 36.8 C 78 18 130/80 95 03/17/21 03:00 36.8 C 88 18 111/76 93 03/17/21 00:44 107 H 03/16/21 22:25 36.4 C L 95 H 18 128/75 92 PG Care Time/CCT Total # of Minutes Spent Total Time Spent with Patient: Total time spent is greater than 50% in coordination of care (as documented) at patient's floor/unit and/or counseling patient: Coding Level of Care Code None Diagnoses Incarcerated right inguinal hernia K40.30
--- NOTE | 2021-03-17 11:16 | Hospitalist Progress Note ---
Date of Service March 17, 2021 Assessment & Plan (1) Incarcerated right inguinal hernia: s/p laparoscopic right inguinal hernia repair with mesh, POD 1 pain well controlled tolerating liquid diet discharge up to surgical team he is medically stable as his blood pressure is normal, Cr is 1.35 and electrolytes are stable, breathing well on room air (2) LBBB (left bundle branch block): New LBBB - Noted on ER EKG to have new LBBB since previous EKG over 10 years ago. - No complaints of angina/anginal equivalents with rest or activity. - Smoking history, quit 3 months ago. -Patient has no evidence of CHF for angina Appreciate cardiology consultation routine echo ordered for today (3) SBO (small bowel obstruction): due to incarcerated inguinal hernia on clear liquids now after surgery monitor for flatus and BM (4) HTN (hypertension): Blood pressure is stable now after surgery Not on medications at home (5) Incidental pulmonary nodule: Noted to have 13 mm nodules at the bases of the lungs on CT abdomen/pelvis Does have history of smoking This should be followed with chest CT when more stable would suggest CT chest in 3-6 months (6) GERD (gastroesophageal reflux disease): Holding home PPI -Add IV Pepcid (7) History of smoking: Just quit 3 months ago (8) DVT prophylaxis: SCDs Disposition-continued stay, hospital service will follow along and follow up on echo results would be stable for discharge from medical perspective once surgical team wants to discharge Admission and Anticipated Discharge Date Admission Date: March 15, 2021 Subjective patient doing well post op day one of right inguinal hernia repair has pain with coughing, but pain is not severe tolerating liquid diet, happy that his lowry is removed no fever/chills, no chest pain, no dyspnea reviewed labs, WBC 11k, Hb 13.5, plts 244k Cr 1.35, K 4.1, mag 1.9 he asked me about discharge, discussed that it will be up to surgical team Review of Systems Review of Systems: All systems reviewed & are unremarkable except as noted in Subjective Constitutional: no fever Respiratory: no cough and no dyspnea Cardiovascular: no chest pain Gastrointestinal: + abdominal pain (right inguinal, post op pain); no nausea, no vomiting, no constipation and no diarrhea/loose stools Physical Exam Constitutional: WD/WN, vitals as above Neck: trachea midline, no thyromegaly Respiratory: normal respiratory effort, lungs clear to auscultation Cardiovascular: RRR, no murmur, no edema Gastrointestinal (Abdomen): Inspection/Auscultation: normal bowel sounds and + abdominal surgical incision (C/D/I); abdomen not distended Percussion/Palpation: + abdomen tender (right inguinal), abdomen soft and normal to percussion Musculoskeletal: no cyanosis or clubbing, extremities motor strength 5/5 Skin: no rashes, warm and dry Neurologic: patellar DTR's 2+ bilat, sensation intact and PERRL, EOMI, accommodation nl, no face palsy, no dysarthria Psychiatric: A+Ox3, euthymic affect Lymphatic: no cervical or axillary lymphadenopathy Results & Data Results & Data ([facility]) Vital Signs (Past 12 Hours) Vital Signs Temp Pulse Pulse Resp BP Pulse Ox 03/17/21 07:30 83 03/17/21 07:00 36.8 C 78 18 130/80 95 03/17/21 03:00 36.8 C 88 18 111/76 93 03/17/21 00:44 107 H Laboratory Results Laboratory Results - last 24 hr 03/16/21 03/17/21 03/17/21 04:10 06:26 06:26 WBC 11.22 H RBC 4.64 L Hgb 13.5 L Hct 40.9 L MCV 88.1 MCH 29.1 MCHC 33.0 RDW Std Deviation 46.7 H RDW Coeff of Rob 14.4 Plt Count 244 MPV 11.3 H Immature Gran % (Auto) 0.4 Neut % (Auto) 65.8 Lymph % (Auto) 17.0 [place] % (Auto) 16.5 Eos % (Auto) 0.2 Baso % (Auto) 0.1 Neut # (Auto) 7.39 H Lymph # (Auto) 1.91 [place] # (Auto) 1.85 H Eos # (Auto) 0.02 Baso # (Auto) 0.01 Immature Gran # (Auto) 0.04 H Sodium 140 Potassium 4.1 Chloride 109 H Carbon Dioxide 26 Anion Gap 5.0 BUN 23 H D Creatinine 1.35 D Est Cr Clr Drug Dosing 63.6 Est GFR ( Amer) 63.0 Est GFR (Non-Af Amer) 54.3 BUN/Creatinine Ratio 17.3 Glucose 125 H Estimat Average Glucose 131 Hemoglobin A1c 6.2 H Calcium 8.4 L Phosphorus 3.0 Magnesium 1.9 Total Bilirubin 0.7 AST 15 ALT 18 Alkaline Phosphatase 38 L Total Protein 6.3 L Albumin 2.6 L Globulin 3.7 Albumin/Globulin Ratio 0.7 L TSH 0.416 Medications Administered Current Inpatient Medications Hydromorphone HCl (Hydromorphone Inj 0.5 Mg/0.5 Ml Syr) 0.5 mg IV Q3H PRN PRN Reason: Pain Stop: 03/30/21 08:09 Last Admin: 03/17/21 08:44 Dose: 0.5 mg Documented by: Hydromorphone HCl (Hydromorphone Inj 1 Mg/Ml Syringe) 1 mg IV Q3H PRN PRN Reason: Pain Stop: 03/30/21 15:50 Acetaminophen (Ofirmev) 1,000 mg in 100 mls @ 400 mls/hr IV Q8H PRN PRN Reason: Pain Stop: 03/19/21 01:41 Last Infusion: 03/16/21 23:09 Dose: Infused Documented by: Cefoxitin Sodium 2,000 mg/ (Dextrose) 60 mls @ 100 mls/hr IV Q6H [facility] Stop: 03/17/21 15:59 Last Admin: 03/17/21 10:26 Dose: 100 mls/hr Documented by: Famotidine 20 mg/ Syringe 5 mls @ 2.5 mls/min IV BID [facility] Stop: 04/15/21 20:59 Last Admin: 03/17/21 08:38 Dose: 2.5 mls/min Documented by: Metoprolol Tartrate (Metoprolol Tartrate 1 Mg/Ml Vial) 5 mg IV Q6 PRN PRN Reason: BP > 180/110 Stop: 04/15/21 01:41 Ondansetron HCl (Ondansetron Inj 2 Mg/Ml 2 Ml Vial) 4 mg IV Q6H PRN PRN Reason: Nausea And Vomiting Stop: 04/15/21 01:41 Last Admin: 03/16/21 05:07 Dose: 4 mg Documented by: Sertraline HCl (Sertraline Hcl 50 Mg Tablet) 50 mg PO DAILY NOHEMI Stop: 04/15/21 08:59 Last Admin: 03/17/21 08:38 Dose: 50 mg Documented by: PG Care Time/CCT Total # of Minutes Spent Total Time Spent with Patient: Total time spent is greater than 50% in coordination of care (as documented) at patient's floor/unit and/or counseling patient: Coding Level of Care Code 82490 Subseq Hosp Care Lvl 3 Diagnoses Incarcerated right inguinal hernia K40.30 LBBB (left bundle branch block) I44.7 SBO (small bowel obstruction) K56.609 HTN (hypertension) I10 Hypertension type: unspecified Incidental pulmonary nodule R91.1 GERD (gastroesophageal reflux disease) K21.9 History of smoking Z87.891 DVT prophylaxis Z29.9 (1) HTN (hypertension) Hypertension type: unspecified Qualified Code(s): I10 - Essential (primary) hypertension
--- NOTE | 2021-03-17 13:25 | XCELERA ---
[id number]
--- NOTE | 2021-03-18 10:33 | Discharge Summary ---
Date of Service March 18, 2021 Admission HPI Per Admitting Provider This is a 65-year-old male who was in his usual state of health until earlier today when he developed abdominal pain that was greatest in the right groin. Patient says that the pain is primarily located in the right groin is does not radiate anywhere else in his body. He denies any palliative or provocative factors. He denies any fevers, shakes, chills. Patient says that he has never had any abdominal surgery. He denies any nausea or vomiting with his current symptomatology. Because of patient's pain he presented to the emergency department where he did have labs and imaging performed which I independently reviewed. CBC revealed his white blood cell count, hemoglobin, hematocrit, and platelet count were all noted to be within normal range. Coagulation studies were noted to be normal. Chemistry profile showed his sodium, potassium, BUN, and creatinine were all within normal range. Lactic acid level was checked and was noted to be not elevated. Urinalysis was not indicative of infection and a Covid test was performed which was negative.Patient did have a CT scan of his abdomen and pelvis. This scan demonstrated a large right inguinal hernia containing portions of the cecum and distal ileum with with possible evidence of incarceration with an upstream small bowel obstruction. There is no pneumatosis intestinalis or portal venous gas. There is no intraperitoneal free air. Patient was also noted to have gallstones and he was also noted to have a fat- containing left inguinal hernia. In addition the patient was noted to have bibasilar pulmonary nodules measuring up to 13 mm which were pathologically indeterminate. To the best of patient's knowledge he was did not know that he had inguinal hernias. He has never had pain in this area before but he does note that he was in the process of moving over the past week and did considerable amount of heavy lifting. He does note that he is active walking his dog nearly every day. The patient says that he can easily walk 1/2 mile on a flat surface without any chest pain or shortness of breath. He also says he can negotiate steps and inclines without chest pain or shortness of breath. He is a former smoker but has not smoked in several years. At the time of my interview the patient is resting comfortably in bed. He only had pain with palpation of his right groin and he was in no distress. Principal Diagnosis incarcertated right inguinal hernia Discharge Exam awake/alert Gastrointestinal (Abdomen) Inspection/Auscultation: + abdominal surgical incision (c/d/i dermabond overtop) Percussion/Palpation: abdomen soft no scrotal edema/ecchymosis Discharge Data Allergies Allergy/AdvReac Type Severity Reaction Status Date / Time No Known Allergies Allergy Mild Verified 03/15/21 21:29 Consultations 03/15/21 22:56 Consult General Surgery Stat 03/15/21 23:27 Consult Hospitalist Stat 03/16/21 00:40 Consult Cardiology Routine Procedures Performed Operation Date: 03/16/21 08:00 Actual Procedures p Diagnostic Laparoscopy, Laparoscopic Right Inguinal Hernia Repair with Mesh(Right) - Alejandro Gary, DO, FACS Ordered Studies 03/15/21 19:23 CT abd pelvis IV con only Stat Hospital Course (1) Incarcerated right inguinal hernia: This is a 65-year-old male who presented to the [facility] ED on 03/15/21 with complaints of abdominal pain, worse in the right groin. Workup in the ER with a CT a/p revealed findings concerning for a large R inguinal hernia containing small and large bowel, consistent with a partial small bowel obstruction. The patient was admitted under the surgical service with hospitalist consultation. Cardiology was consulted as patient did have a brief episode of hypotension and diaphoresis with EKG changes. His symptoms resolved and he was evaluated by cards and deemed an acceptable risk for surgery. Patient went to the OR on 03/16/21 and underwent a laparoscopic right inguinal hernia repair. The patient tolerated the procedure well, see op note for full details. The patient recovered in the PACU and was transferred back to the med/surg unit in stable condition with a lowry catheter and NPO with IVF. POD#1 patient's lowry was removed and he was able to void spontaneously. Diet was advanced as tolerated. Pain controlled with prn medication. Incisions c/d/i. The patient was ultimately deemed stable for discharge to home in stable condition with plans to follow up in clinic with Dr. Gary in 1-2 weeks. Total Time Total Time Spent Total Time Spent (In Minutes): 15 Discharge Plan Discharge Items Patient Disposition: Home - Self-Care Reason For Visit: HERNIA Discharge Diagnosis: hernia repair Activity: As commented below Lifting: No more than 10 pounds Bathing Comment: ok to shower Driving/Machine Use: when pain free Non-emergency contact: Surgeon Call non-emergency contact if: you have any medication questions, your pain is not controlled, your temperature is above 101.5 and your wound has increased redness Follow-up/Referrals: Marky Cook III, MD [Primary Care Provider] - Alejandro Gary DO, FACS [Physician] - Diet: Regular Addtl Attending Provider Instructions: Pending Studies at Discharge: No Stand-Alone Forms: My [facility] Cashback [place], Smoking Cessation Medications and DC Order Prescriptions: New oxycodone-acetaminophen [Percocet] 5-325 mg tablet 1 - 2 tab PO Q4H PRN (Reason: pain, initial therapy, max 6 daily) Qty: 15 RF: 0 Continued sertraline 50 mg tablet 50 mg PO DAILY Qty: 90 RF: 3 omeprazole 20 mg capsule,delayed release(DR/EC) 20 mg PO DAILY Qty: 90 RF: 3 triamcinolone acetonide 0.1 % cream 1 applic topical BID Qty: 30 RF: 2 ibuprofen [Advil] 200 mg Tablet 200 mg PO Q6H PRN (Reason: Pain) RF: 0 Discharge Orders: Discharge Order (Routine); Ordered 03/17/21 Ordered By: Alexei Nunez/Other Patient Handouts: Prediabetes, 5 Steps for Eating Healthier, A1C Admission Data Admit Date/Time: 03/15/21 23:10 Attending Provider: Alejandro Gary Admit Provider: Neto Levine Primary Care Provider: Marky Cook III Other Providers: Neto Levine ; Willy Scott ; Daniel Medina ; Ankit Barclay Other Interventions: Discharge Summary Assessment (RN) Last Done: 03/17/21 14:53 Coding Level of Care Code D/C Day Management <30 mins Diagnoses Incarcerated right inguinal hernia K40.30
--- NOTE | 2021-03-21 10:29 | Billing Data ---
Date of Service March 21, 2021 Coding Level of Care Code 14578 Inpt Consult Level 3
--- NOTE | 2021-03-21 13:07 | Anesthesiology Progress Note ---
Date of Service March 16, 2021 Anesthesia Post Procedure Pain Intensity Abdomen: Pain Intensity: 5 Bilateral Abdomen: Pain Intensity: 2 Transfer of Care Handoff Completed per policy Notes Mental Status: alert / awake / arousable and participated in evaluation Patient Amnestic to Procedure: Yes Nausea / Vomiting: adequately controlled Pain: adequately controlled Airway Patency, RR, SpO2: stable & adequate BP & HR: stable & adequate Hydration State: stable & adequate Anesthetic Complications: no major complications apparent and Pt Satisfied with anesthetic care
== END 2021-03-17 16:46 | disposition home or self-care (01) | DRG 352 ==
LOC: ED 19:16 → 3N 23:10 → 2N 03-16 01:41